=== PATIENT | male | born 1970 | race Caucasian/White ===

== ENCOUNTER 2018-12-28 18:36 | Emergency (ER) | payer MEDICARE, OTHER ==
[2018-12-28 18:50] VITALS: TEMP 98.3
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
--- NOTE | 2018-12-28 20:24 | XR ---
EXAMINATION TYPE: XR chest 2V DATE OF EXAM: 12/28/2018 COMPARISON: NONE HISTORY: Cough TECHNIQUE: Frontal and lateral views of the chest are obtained. FINDINGS: Heart and mediastinum are normal. Lungs are clear. Diaphragm is normal. Bony thorax appear s intact. IMPRESSION: Normal chest
[2018-12-28 22:12] VITALS: BP 148/97; PULSE 64; RESP 18
== END 2018-12-28 21:10 | disposition home or self-care (01) ==
LOC: EC 18:36 → EEVIPCON 18:36 → EC 21:10
DX: T17.210A Gastric contents in pharynx causing asphyxiation, initial encounter (principal); F84.0 Autistic disorder; R41.82 Altered mental status, unspecified; F41.0 Panic disorder [episodic paroxysmal anxiety]; Z79.899 Other long term (current) drug therapy; Y93.89 Activity, other specified
CPT/HCPCS: 71046; 99283

== ENCOUNTER 2019-07-18 17:54 | Observation (INO) | payer MEDICARE, OTHER ==
[2019-07-18] MEDS ORDERED: SODIUM CHLORIDE 0.9% 1,000 ML IV STA (18:11)
[2019-07-18 18:31] LABS: ALT 21 U/L (21-72); AST 22 U/L (17-59); African American GFR (CKD) >90 (>60 ml/min/1.73 sqM); Albumin 2.8 g/dL (3.5-5.0); Alkaline Phosphatase 48 U/L (38-126); Anion Gap 5 mmol/L; Basophils % (A) 0 %; Blood Urea Nitrogen 24 mg/dL (9-20); Calcium 7.2 mg/dL (8.4-10.2); Carbon Dioxide 24 mmol/L (22-30); Chloride 111 mmol/L (98-107); Eosinophils # (A) 0.1 k/uL (0-0.7); Eosinophils % (A) 2 %; Glucose 101 mg/dL (74-99); HCT 34.6 % (39.0-53.0); HGB 11.2 gm/dL (13.0-17.5); Lymphocytes # (A) 0.5 k/uL (1.0-4.8); Lymphocytes % (A) 7 %; MCH 29.4 pg (25.0-35.0); MCHC 32.5 g/dL (31.0-37.0); MCV 90.5 fL (80.0-100.0); Mean Platelet Volume 6.9; Monocytes # (A) 0.4 k/uL (0-1.0); Monocytes % (A) 5 %; Neutrophils # (A) 5.8 k/uL (1.3-7.7); Neutrophils % (A) 84 %; Non-African American GFR(CKD) >90 (>60 ml/min/1.73 sqM); Platelet Count 120 k/uL (150-450); Potassium 3.3 mmol/L (3.5-5.1); RBC 3.82 m/uL (4.30-5.90); RDW 12.6 % (11.5-15.5); Sodium 140 mmol/L (137-145); Total Bilirubin 0.5 mg/dL (0.2-1.3); Total Protein 5.2 g/dL (6.3-8.2); WBC 6.9 k/uL (3.8-10.6)
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
[2019-07-18 18:32] LABS: INR 1.1 (<1.2); Partial Thromboplastin Time 22.3 sec (22.0-30.0); Prothrombin Time 11.5 sec (9.0-12.0)
[2019-07-18] MEDS ORDERED: POTASSIUM CHLORIDE 20 MEQ in WATER FOR INJECTION 1 100ML.BAG IVPB STA (19:08)
[2019-07-18] MEDS ORDERED: NALOXONE 0.4 MG/ML 1 ML VIAL IV PRN (19:17)
--- NOTE | 2019-07-18 19:18 | XR ---
EXAMINATION TYPE: XR chest 2V DATE OF EXAM: 07/18/2019 COMPARISON: 12/28/2018 HISTORY: Hypotension TECHNIQUE: Frontal and lateral views of the chest are obtained. FINDINGS: Heart and mediastinum are normal. Lungs are clear. Diaphragm is normal. Bony thorax appear s normal. There are chest leads. IMPRESSION: Normal chest. No change.
[2019-07-18] MEDS: SODIUM CHLORIDE 0.9% 1,000 ML IV SCH (20:16)
[2019-07-18] MEDS ORDERED: MELATONIN 5 MG TABLET PO SCH (21:00)
[2019-07-18] MEDS ORDERED: HALOPERIDOL ORAL SOLN 10 MG/5 ML CUP PO SCH (21:00)
[2019-07-18] MEDS: QUEtiapine 200 MG TAB PO SCH (22:00)
[2019-07-18] MEDS: LORazepam 1 MG TAB PO SCH (22:00)
[2019-07-19 06:51] LABS: Basophils % (A) 0 %; Eosinophils # (A) 0.2 k/uL (0-0.7); Eosinophils % (A) 4 %; HCT 36.1 % (39.0-53.0); HGB 11.8 gm/dL (13.0-17.5); Lymphocytes # (A) 0.9 k/uL (1.0-4.8); Lymphocytes % (A) 14 %; MCH 28.7 pg (25.0-35.0); MCHC 32.8 g/dL (31.0-37.0); MCV 87.4 fL (80.0-100.0); Mean Platelet Volume 7.5; Monocytes # (A) 0.4 k/uL (0-1.0); Monocytes % (A) 6 %; Neutrophils # (A) 4.4 k/uL (1.3-7.7); Neutrophils % (A) 74 %; Platelet Count 127 k/uL (150-450); RBC 4.13 m/uL (4.30-5.90); RDW 12.8 % (11.5-15.5)
[2019-07-19] MEDS ORDERED: cloZAPine 100 MG TAB PO SCH ×2 (07:00→16:00)
[2019-07-19] MEDS ORDERED: HALOPERIDOL ORAL SOLN 10 MG/5 ML CUP PO SCH (07:00)
[2019-07-19] MEDS ORDERED: LORATADINE 10 MG TAB PO SCH (07:00)
[2019-07-19] MEDS ORDERED: ATENOLOL 50 MG TAB PO SCH (07:00)
[2019-07-19 07:25] LABS: African American GFR (CKD) >90 (>60 ml/min/1.73 sqM); Anion Gap 5 mmol/L; Blood Urea Nitrogen 19 mg/dL (9-20); Calcium 8.4 mg/dL (8.4-10.2); Carbon Dioxide 26 mmol/L (22-30); Chloride 111 mmol/L (98-107); Glucose 78 mg/dL (74-99); Non-African American GFR(CKD) >90 (>60 ml/min/1.73 sqM); Potassium 4.1 mmol/L (3.5-5.1); Sodium 142 mmol/L (137-145)
[2019-07-19] MEDS: LORazepam 1 MG TAB PO SCH (08:00)
[2019-07-19] MEDS: QUEtiapine 200 MG TAB PO SCH (08:03)
[2019-07-19] MEDS: SODIUM CHLORIDE 0.9% 1,000 ML IV SCH (10:32)
[2019-07-19 12:24] VITALS: BP 157/93; PULSE 63; RESP 17; TEMP 97.8
--- NOTE | 2019-07-19 15:12 | P.HPIM ---
History of Present Illness 49-year-old pleasant male is mostly nonverbal does have history of schizoaffective disorder autism spectrum disorder is admitted after a syncopal episode patient the had a brief episode of unresponsiveness patient blood pressure was found to be low patient is on atenolol blood heart rate is okay EKG did not show any acute ST-T wave changes patient received IV fluids patient is is clinically doing well now will be discharged today echocardiogram will be obtained as an outpatient syncope is probably secondary to hypotension which may be related to atenolol. Review of Systems underwent obtain due to his clinical condition Past Medical History Past Medical History: Seizure Disorder History of Any Multi-Drug Resistant Organisms: None Reported Past Surgical History: No Surgical Hx Reported Past Psychological History: Anxiety, Panic Disorder Smoking Status: Never smoker Past Alcohol Use History: None Reported Past Drug Use History: None Reported Medications and Allergies Home Medications Medication Instructions Recorded Confirmed Type Benztropine Mesylate [Cogentin] 1 mg PO BID@0700,199912/28/18 07/18/19 History Docusate [Colace] 100 mg PO DAILY@159912/28/18 07/18/19 History Eucerin Cream 1 applic TOPICAL HS@199912/28/18 07/18/19 History Haloperidol Oral Soln [Haldol Oral 2 mg PO DAILY@69912/28/18 07/18/19 History Soln] Haloperidol Oral Soln [Haldol Oral 3 mg PO HS 12/28/18 07/18/19 History Soln] LORazepam [Ativan] 1 mg PO BID@0700,199912/28/18 07/18/19 History Loratadine 10 mg PO DAILY@69912/28/18 07/18/19 History Melatonin 5 mg PO 12/28/18 07/18/19 History QUEtiapine FUMARATE [QUEtiapine 400 mg PO HS 12/28/18 07/18/19 History FUMARATE ER] cloZAPine [Clozaril] 100 mg PO HS@159912/28/18 07/18/19 History cloZAPine [Clozaril] 200 mg PO QAM@69912/28/18 07/18/19 History Allergies Allergy/AdvReac Type Severity Reaction Status Date / Time No Known Allergies Allergy Verified 07/18/19 19:22 Physical Exam Vitals: Vital Signs Temp Pulse Pulse Resp BP BP Pulse Ox 07/19/19 12:24 97.8 F 63 17 157/93 100 07/19/19 05:42 97.6 F 67 16 123/71 96 07/18/19 23:43 98.7 F 67 16 93/55 95 07/18/19 21:00 98.4 F 73 17 104/61 97 07/18/19 20:45 76 17 105/63 98 07/18/19 20:15 74 17 102/60 97 07/18/19 18:22 76 16 99/57 07/18/19 17:58 98.4 F 76 16 102/65 99 Intake and Output 07/19/19 07/19/19 07/19/19 06:59 14:59 22:59 Intake Total 340 Balance 340 Intake: Intake, IV Titration 100 Amount Potassium Chloride 20 meq 100 In Water For Injection 1 100ml.bag @ 50 mls/hr IVPB ONCE STA Rx#: [id number] Oral 240 Other: Voiding Method Toilet # Voids 4 # Bowel Movements 2 PHYSICAL EXAMINATION: GENERAL: The patient is alert unable to assess his orientation nonverbal, not in any acute distress. Well developed, well nourished. HEENT: Pupils are round and equally reacting to light. EOMI. No scleral icterus. No conjunctival pallor. Normocephalic, atraumatic. No pharyngeal erythema. No thyromegaly. CARDIOVASCULAR: S1 and S2 present. No murmurs, rubs, or gallops. PULMONARY: Chest is clear to auscultation, no wheezing or crackles. ABDOMEN: Soft, nontender, nondistended, normoactive bowel sounds. No palpable organomegaly. MUSCULOSKELETAL: No joint swelling or deformity. EXTREMITIES: No cyanosis, clubbing, or pedal edema. NEUROLOGICAL: Gross neurological examination did not reveal any focal deficits. SKIN: No rashes. Results CBC & Chem 7: 07/19/19 06:26 07/19/19 06:26 Labs: Abnormal Lab Results - Last 24 Hours (Table) 07/18/19 07/18/19 07/19/19 Range/Units 18:09 18:09 06:26 RBC 3.82 L 4.13 L (4.30-5.90) m/uL Hgb 11.2 L 11.8 L (13.0-17.5) gm/dL Hct 34.6 L 36.1 L (39.0-53.0) % Plt Count 120 L 127 L (150-450) k/uL Lymphocytes # 0.5 L 0.9 L (1.0-4.8) k/uL Potassium 3.3 L (3.5-5.1) mmol/L Chloride 111 H (98-107) mmol/L BUN 24 H (9-20) mg/dL Glucose 101 H (74-99) mg/dL Calcium 7.2 L (8.4-10.2) mg/dL Total Protein 5.2 L (6.3-8.2) g/dL Albumin 2.8 L (3.5-5.0) g/dL 07/19/19 Range/Units 06:26 RBC (4.30-5.90) m/uL Hgb (13.0-17.5) gm/dL Hct (39.0-53.0) % Plt Count (150-450) k/uL Lymphocytes # (1.0-4.8) k/uL Potassium (3.5-5.1) mmol/L Chloride 111 H (98-107) mmol/L BUN (9-20) mg/dL Glucose (74-99) mg/dL Calcium (8.4-10.2) mg/dL Total Protein (6.3-8.2) g/dL Albumin (3.5-5.0) g/dL Thrombosis Risk Factor Assmnt - Choose All That Apply Any of the Below Risk Factors Present?: Yes Each Factor Represents 1 point: Age 41-60 years Other Risk Factors: No Other congenital or acquired thrombophilia - If yes, enter type in comment: No Thrombosis Risk Factor Assessment Total Risk Factor Score: 1 Thrombosis Risk Factor Assessment Level: Low Risk Assessment and Plan Plan: -syncope secondary to hypotension may be related to atenolol patient heart rate and blood pressure are fairly good at this time off atenolol atenolol will be discontinued and patient will be discharged to follow with PCP as an outpatient -Hypokalemia potassium was supplemented -Autism and schizoaffective disorder patient is on multiple antipsychotic medications which will be resumed and continued -seizure disorder. Patient will be discharged today with the outpatient echocardiogram and 2-7 days
--- NOTE | 2019-07-19 15:12 | P.DS ---
Providers Date of admission: 07/18/19 19:18 Attending physician: Daniel Blanchard Primary care physician: Renan Wolfe [facility] Course: please refer to my HPI. Patient telemetry did not show any significant arrhythmias EKG normal sinus rhythm Patient Condition at Discharge: Stable Plan - Discharge Summary New Discharge Prescriptions: Discontinued Atenolol [Tenormin] 50 mg PO DAILY@0700 No Action QUEtiapine FUMARATE [QUEtiapine FUMARATE ER] 400 mg PO HS Melatonin 5 mg PO HS LORazepam [Ativan] 1 mg PO BID@07,1999 Benztropine Mesylate [Cogentin] 1 mg PO BID@07,1999 cloZAPine [Clozaril] 100 mg PO HS@1600 cloZAPine [Clozaril] 200 mg PO QAM@0700 Haloperidol Oral Soln [Haldol Oral Soln] 3 mg PO HS Haloperidol Oral Soln [Haldol Oral Soln] 2 mg PO DAILY@0700 Loratadine 10 mg PO DAILY@0700 Docusate [Colace] 100 mg PO DAILY@1600 Eucerin Cream 1 applic TOPICAL HS@1999 Discharge Medication List Benztropine Mesylate [Cogentin] 1 mg PO BID@0700,199912/28/18 [History] Docusate [Colace] 100 mg PO DAILY@1600 12/28/18 [History] Eucerin Cream 1 applic TOPICAL HS@199912/28/18 [History] Haloperidol Oral Soln [Haldol Oral Soln] 2 mg PO DAILY@0700 12/28/18 [History] Haloperidol Oral Soln [Haldol Oral Soln] 3 mg PO HS 12/28/18 [History] LORazepam [Ativan] 1 mg PO BID@07,199912/28/18 [History] Loratadine 10 mg PO DAILY@0700 12/28/18 [History] Melatonin 5 mg PO HS 12/28/18 [History] QUEtiapine FUMARATE [QUEtiapine FUMARATE ER] 400 mg PO HS 12/28/18 [History] cloZAPine [Clozaril] 100 mg PO HS@1600 12/28/18 [History] cloZAPine [Clozaril] 200 mg PO QAM@0700 12/28/18 [History] Follow up Appointment(s)/Referral(s): Renan Wolfe DO [Primary Care Provider] - 3 Days (Please call Dr. Wolfe's office Tuesday morning to schedule follow up appointment. The office is closed at time of discharge. ) Patient Instructions/Handouts: Syncope (DC) Discharge Disposition: HOME SELF-CARE
[2019-07-19] MEDS ORDERED: DOCUSATE 100 MG CAP PO SCH (16:00)
== END 2019-07-19 16:45 | disposition home or self-care (01) ==
LOC: EC 17:54 → 1SOBS 19:18 → 3NMEDONC 20:30
PROVIDERS: ADMIT Hospitalist; ATTEND Hospitalist
DX: I95.9 Hypotension, unspecified (principal); R55 Syncope and collapse; F84.0 Autistic disorder; F25.9 Schizoaffective disorder, unspecified; G40.909 Epilepsy, unspecified, not intractable, without status epilepticus; F41.9 Anxiety disorder, unspecified; F41.0 Panic disorder [episodic paroxysmal anxiety]; Z73.6 Limitation of activities due to disability; E11.9 Type 2 diabetes mellitus without complications; Z79.899 Other long term (current) drug therapy
CPT/HCPCS: 96361 ×3; 96365; 96366; 99285; 36415; 93005; 80053; 80048; 83605; 84484 ×2; 85025 ×2; 85610; 85730; 71046; G0378 ×3; J3480; S0136

== ENCOUNTER 2019-07-21 16:00 | Inpatient (IN) | payer MEDICARE, OTHER ==
[2019-07-21] MEDS ORDERED: SODIUM CHLORIDE 0.9% 1,000 ML IV STA (16:30)
[2019-07-21] MEDS ORDERED: ONDANSETRON 4 MG/2 ML VIAL IVP STA (16:30)
--- NOTE | 2019-07-21 16:33 | ED ---
Nausea/Vomiting/Diarrhea HPI <Marcel Rodriguez - Last Filed: 07/21/19 19:16> - General Source: patient Mode of arrival: ambulatory Limitations: no limitations <Lala Donaldson - Last Filed: 07/21/19 21:17> - General Chief complaint: Nausea/Vomiting/Diarrhea Stated complaint: ABDOMINAL PAIN, HARD STOMACH Time Seen by Provider: 07/21/19 16:22 - History of Present Illness Initial comments: 49-year-old male patient with past medical history significant for autism, schizophrenia, nonverbal presents to the emergency department with caregiver for evaluation of vomiting and lethargy. They state that patient's mental status has declined from his usual. States he has been sleeping all day. States he h as had 2 episodes of vomiting, his abdomen feels hard and distended. They state that he did have low-grade fever earlier on 99F. States that he has eaten very little today which is quite unusual for him. They state that he was recently admitted after a syncopal event, but was doing well after discharge. They deny any known diarrhea however patient does toilet himself independently. Caregiver states that patient was found lying in bed vomiting while on his back, states that his breathing has been more rapid since. They deny any coughing. (Lala Donaldson) - Related Data Home Medications Medication Instructions Recorded Confirmed Benztropine Mesylate [Cogentin] 1 mg PO BID@0700,199912/28/18 07/21/19 Docusate [Colace] 100 mg PO DAILY@1600 12/28/18 07/21/19 Eucerin Cream 1 applic TOPICAL HS@199912/28/18 07/21/19 Haloperidol Oral Soln [Haldol Oral 2 mg PO DAILY@0712/28/18 07/21/19 Soln] Haloperidol Oral Soln [Haldol Oral 3 mg PO HS@199912/28/18 07/21/19 Soln] LORazepam [Ativan] 1 mg PO BID@0700,199912/28/18 07/21/19 Loratadine 10 mg PO DAILY@0700 12/28/18 07/21/19 Melatonin 5 mg PO HS@199912/28/18 07/21/19 QUEtiapine FUMARATE [QUEtiapine 400 mg PO HS@199912/28/18 07/21/19 FUMARATE ER] cloZAPine [Clozaril] 100 mg PO HS@1600 12/28/18 07/21/19 cloZAPine [Clozaril] 200 mg PO QAM@0700 12/28/18 07/21/19 Atenolol [Tenormin] 50 mg PO DAILY@0700 07/21/19 07/21/19 LORazepam [Ativan] 1 mg PO BID PRN 07/21/19 07/21/19 Allergies Allergy/AdvReac Type Severity Reaction Status Date / Time No Known Allergies Allergy Verified 07/21/19 19:11 Review of Systems ROS Other: All systems not noted in ROS Statement are negative. <Marcel Rdoriguez - Last Filed: 07/21/19 19:16> ROS Other: All systems not noted in ROS Statement are negative. <Lala Donaldson - Last Filed: 07/21/19 21:17> ROS Statement: Those systems with pertinent positive or pertinent negative responses have been documented in the HPI. Past Medical History Past Medical History: Seizure Disorder History of Any Multi-Drug Resistant Organisms: None Reported Past Surgical History: No Surgical Hx Reported Past Psychological History: Anxiety, Panic Disorder, Schizophrenia Smoking Status: Never smoker Past Alcohol Use History: None Reported Past Drug Use History: None Reported <Lala Donaldson - Last Filed: 07/21/19 21:17> General Exam Limitations: no limitations General appearance: alert, in no apparent distress ENT exam: Present: normal exam, normal oropharynx, mucous membranes moist Respiratory exam: Present: normal lung sounds bilaterally. Absent: respiratory distress, wheezes, rales, rhonchi, stridor Cardiovascular Exam: Present: regular rate, normal rhythm, normal heart sounds. Absent: systolic murmur, diastolic murmur, rubs, gallop, clicks GI/Abdominal exam: Present: soft, distended, normal bowel sounds. Absent: tenderness, guarding, rebound, rigid Neurological exam: Present: alert Psychiatric exam: Present: normal affect, normal mood Skin exam: Present: warm, dry, intact, normal color. Absent: rash <Lala Donaldson - Last Filed: 07/21/19 21:17> Course <Marcel Rodriguez - Last Filed: 07/21/19 19:16> Vital Signs 07/21/19 07/21/19 07/21/19 16:16 17:30 19:44 Temperature 98.2 F 98.0 F Pulse Rate 90 94 Respiratory 18 16 18 Rate Blood Pressure 133/92 134/87 O2 Sat by Pulse 95 91 L Oximetry 07/21/19 20:04 Temperature Pulse Rate 91 Respiratory 18 Rate Blood Pressure 140/85 O2 Sat by Pulse 98 Oximetry - Reevaluation(s) Reevaluation #1: 07/21/19 19:16 And P supervision: I proceeded [id number] evaluation the patient the patient himself is nonconversant I did discuss the case with the patient's caregiver. Patient does present with nausea vomiting evidence of mechanical bowel obstruction with fecal stasis/impaction. Patient will be admitted for IV fluids nasogastric suction and surgical consultation. I did discuss the case with Dr. Adorno (Marcel Rodriguez) Medical Decision Making - Lab Data Result diagrams: 07/21/19 16:50 07/21/19 16:50 <Marcel Rodriguez - Last Filed: 07/21/19 19:16> - Lab Data Result diagrams: 07/21/19 16:50 07/21/19 16:50 - Radiology Data Radiology results: report reviewed, image reviewed <Lala Donaldson - Last Filed: 07/21/19 21:17> - Medical Decision Making 49-year-old male patient who is nonverbal with history of autism, [facility], presents to the emergency department today for eval uation of vomiting and abdominal distention. Physical examination did reveal distended abdomen with no tenderness. Labs reviewed and are relatively unremarkable. Did show low potassium, we will replace this IV. CT of the abdomen and pelvis did reveal evidence for small bowel obstruction possibly due to rectal fecal impaction. We will insert an NG tube, he'll be admitted for further evaluation by general surgery. NG tube was inserted, placement xray showed placement in the lung. Upon re-eval uation patient was 89% on room air. NG tube was removed. Concern for contamination with gastric contents so did start Levaquin. NG tube replaced and showed proper positioning. Oxygen saturation did improve. (Lala Donaldson) - Lab Data Lab Results 07/21/19 07/21/19 Range/Units 16:50 16:50 WBC 8.1 (3.8-10.6) k/uL RBC 4.40 (4.30-5.90) m/uL Hgb 12.9 L (13.0-17.5) gm/dL Hct 37.5 L (39.0-53.0) % MCV 85.2 (80.0-100.0) fL MCH 29.3 (25.0-35.0) pg MCHC 34.3 (31.0-37.0) g/dL RDW 12.6 (11.5-15.5) % Plt Count 159 (150-450) k/uL Neutrophils % 91 % Lymphocytes % 3 % Monocytes % 5 % Eosinophils % 0 % Basophils % 0 % Neutrophils # 7.4 (1.3-7.7) k/uL Lymphocytes # 0.3 L (1.0-4.8) k/uL Monocytes # 0.4 (0-1.0) k/uL Eosinophils # 0.0 (0-0.7) k/uL Basophils # 0.0 (0-0.2) k/uL Sodium 140 (137-145) mmol/L Potassium 3.2 L (3.5-5.1) mmol/L Chloride 103 (98-107) mmol/L Carbon Dioxide 25 (22-30) mmol/L Anion Gap 12 mmol/L BUN 25 H (9-20) mg/dL Creatinine 0.86 (0.66-1.25) mg/dL Est GFR (CKD-EPI)AfAm >90 (>60 ml/min/1.73 sqM) Est GFR (CKD-EPI)NonAf >90 (>60 ml/min/1.73 sqM) Glucose 185 H (74-99) mg/dL Calcium 9.3 (8.4-10.2) mg/dL Total Bilirubin 0.5 (0.2-1.3) mg/dL AST 24 (17-59) U/L ALT 23 (21-72) U/L Alkaline Phosphatase 72 (38-126) U/L Total Protein 6.7 (6.3-8.2) g/dL Albumin 4.0 (3.5-5.0) g/dL Amylase 70 (30-110) U/L Lipase 67 (23-300) U/L - Radiology Data Two-view x-ray of the chest is obtained. Report was reviewed in its entirety. Impression by Dr. Corona shows low lung volumes and cardiomegaly with patchy bibasilar acute atelectasis and/or infiltrate. KUB x-ray was obtained. Report was reviewed in its entirety. Impression by Dr. Corona shows bowel gas pattern suspicious for distal small bowel instruction. Distended stomach with air-fluid level. Advise NG tube placement. Continue CT. CT abdomen and pelvis with contrast obtained. Report was reviewed in its entirety. Impression by Dr. Torre shows markedly dilated small bowel with fluid and air. Dilated stomach. Rectal fecal impaction. Findings could relate to significant ileus or mechanical bowel obstruction. Site of the obstruction could be the rectal fecal impaction. No free air. Mild atelectasis at the lung base. (Lala Donaldson) Disposition <Marcel Rodriguez - Last Filed: 07/21/19 19:16> Decision to Admit Reason: Admit from EC Decision Date: 07/21/19 Decision Time: 18:49 <Lala Donaldson - Last Filed: 07/21/19 21:17> Clinical Impression: Small bowel obstruction Disposition: ADMITTED IP TO THIS HOSP Condition: Serious
[2019-07-21 17:04] LABS: Basophils % (A) 0 %; Eosinophils % (A) 0 %; HCT 37.5 % (39.0-53.0); HGB 12.9 gm/dL (13.0-17.5); Lymphocytes # (A) 0.3 k/uL (1.0-4.8); Lymphocytes % (A) 3 %; MCH 29.3 pg (25.0-35.0); MCHC 34.3 g/dL (31.0-37.0); MCV 85.2 fL (80.0-100.0); Mean Platelet Volume 7.6; Monocytes # (A) 0.4 k/uL (0-1.0); Monocytes % (A) 5 %; Neutrophils # (A) 7.4 k/uL (1.3-7.7); Neutrophils % (A) 91 %; Platelet Count 159 k/uL (150-450); RDW 12.6 % (11.5-15.5); WBC 8.1 k/uL (3.8-10.6)
[2019-07-21 17:13] LABS: ALT 23 U/L (21-72); AST 24 U/L (17-59); African American GFR (CKD) >90 (>60 ml/min/1.73 sqM); Alkaline Phosphatase 72 U/L (38-126); Amylase 70 U/L (30-110); Anion Gap 12 mmol/L; Blood Urea Nitrogen 25 mg/dL (9-20); Calcium 9.3 mg/dL (8.4-10.2); Carbon Dioxide 25 mmol/L (22-30); Chloride 103 mmol/L (98-107); Glucose 185 mg/dL (74-99); Non-African American GFR(CKD) >90 (>60 ml/min/1.73 sqM); Potassium 3.2 mmol/L (3.5-5.1); Sodium 140 mmol/L (137-145); Total Bilirubin 0.5 mg/dL (0.2-1.3); Total Protein 6.7 g/dL (6.3-8.2)
--- NOTE | 2019-07-21 17:19 | XR ---
EXAMINATION TYPE: XR chest 2V DATE OF EXAM: 07/21/2019 COMPARISON chest x-ray 3 days ago. HISTORY: Epigastric and chest pain. TECHNIQUE: Frontal and lateral views of the chest are obtained. FINDINGS: There is low lung volumes and chronic parenchymal change with patchy bibasilar opacities. No pleural effusion or pneumothorax. The cardiac silhouette size is mildly enlarged. The osseous s tructures are intact. Prominent stomach with air-fluid level extends to the right of midline. IMPRESSION: Lobe lung volumes and cardiomegaly with patchy bibasilar acute atelectasis and/or infilt rate.
--- NOTE | 2019-07-21 17:21 | XR ---
EXAMINATION TYPE: XR KUB DATE OF EXAM: 07/21/2019 5:14 PM CLINICAL HISTORY: Abdominal pain and distention. TECHNIQUE: Two Upright KUB images of the abdomen are obtained. COMPARISON: Same day chest x-ray.. FINDINGS: There is distended stomach with air-fluid level seen best on chest x-ray. There are gas dil ated and prominent small bowel loops with scattered air-fluid levels. Gas and fecal material is seen in slightly prominent rectum. Gas slightly prominent colonic loops without definitive abnormal dilata tion. Few scattered air-fluid levels. No pneumoperitoneum or suspicious calcification. Lung bases are clear. IMPRESSION: Bowel gas pattern suspicious for distal small bowel obstruction. Distended stomach with a ir-fluid level. Advise NG tube placement. Consider CT evaluation.
--- NOTE | 2019-07-21 18:13 | CT ---
EXAMINATION TYPE: CT abdomen pelvis w con DATE OF EXAM: 07/21/2019 COMPARISON: None HISTORY: Abdominal distention, nausea and vomiting. CT DLP: 979.3 mGycm Automated exposure control for dose reduction was used. TECHNIQUE: Helical acquisition of images was performed from the lung bases through the pelvis. CONTRAST: Performed without Oral Contrast and with IV Contrast, patient injected with 100 mL of Isovue 300. FINDINGS: There is some mild atelectasis at the lung bases. There is poor inspiration. Liver shows no focal def ect. Spleen is intact. Stomach is markedly dilated. There are multiple dilated air and fluid-filled s mall bowel loops that measure up to 4.6 cm. There is retained fecal material in the rectum. There is some rectal fecal impaction. Rectum measures 8 cm. The remainder of the large bowel is not significan tly dilated. There is gaseous distention of the transverse colon. Gallbladder appears normal. Bile ducts are not dilated. There is no adrenal mass. Kidneys show satisf actory contrast opacification. There is no hydronephrosis. I see no sign of free air. There is no asc ites. There is narrowing at L5-S1 disc space. There is spurring of the endplates. There is no compression f racture. Bony pelvis is intact. IMPRESSION: MARKEDLY DILATED SMALL BOWEL WITH FLUID AND AIR. DILATED STOMACH. RECTAL FECAL IMPACTION. FINDINGS CO ULD RELATE TO SIGNIFICANT ILEUS OR MECHANICAL BOWEL OBSTRUCTION. SITE OF THE OBSTRUCTION COULD BE THE RECTAL FECAL IMPACTION. NO FREE AIR. MILD ATELECTASIS AT THE LUNG BASES.
[2019-07-21] MEDS ORDERED: ONDANSETRON 4 MG/2 ML VIAL IVP PRN (18:47)
[2019-07-21] MEDS ORDERED: NALOXONE 0.4 MG/ML 1 ML VIAL IV PRN (18:47)
[2019-07-21] MEDS ORDERED: LORazepam 2 MG/ML INJ IV STA (18:58)
[2019-07-21] MEDS ORDERED: METOCLOPRAMIDE 5 MG/ML 2 ML VIAL IVP STA (18:58)
[2019-07-21] MEDS ORDERED: diphenhydrAMINE 50 MG/ML 1 ML VIAL IVP STA (18:58)
[2019-07-21] MEDS: SODIUM CHLORIDE 0.9% 1,000 ML IV SCH (19:04)
[2019-07-21] MEDS ORDERED: LEVOFLOXACIN 750MG-D5W PMX 750 MG in DEXTROSE/WATER 1 150ML.BAG IVPB STA (19:39)
--- NOTE | 2019-07-21 19:48 | XR ---
EXAMINATION TYPE: XR abdomen 1V DATE OF EXAM: 07/21/2019 COMPARISON: Today HISTORY: Check tube placement TECHNIQUE: Single view FINDINGS: Nasogastric tube has a tip in the left lower lobe bronchus. This is in lateral basal segmen t branch. There is dilated multiple loops of large and small bowel and dilated stomach. There is no s ign of free air. IMPRESSION: There is malposition of the NG tube. Emergency room is aware and making readjustment. Dilated bowel consistent with mechanical bowel obstruction.
--- NOTE | 2019-07-21 19:55 | XR ---
EXAMINATION TYPE: XR abdomen 1V DATE OF EXAM: 07/21/2019 COMPARISON: Today HISTORY: NG tube placement TECHNIQUE: Single view FINDINGS: The nasogastric tube is in the stomach and the tip is at the gastric fundus. There is some atelectasis at the lung bases. There are multiple dilated loops of bowel. IMPRESSION: NG tube is in good position.
[2019-07-21] MEDS ORDERED: LORazepam 1 MG TAB PO PRN (22:00)
[2019-07-21] MEDS: POTASSIUM CHLORIDE 10 MEQ in WATER FOR INJECTION 1 100ML.BAG IVPB SCH (23:05)
[2019-07-21] MEDS: HALOPERIDOL ORAL SOLN 10 MG/5 ML CUP PO SCH (23:06)
[2019-07-21] MEDS: MELATONIN 5 MG TABLET PO SCH (23:07)
[2019-07-21] MEDS: QUEtiapine 400 MG TAB PO SCH (23:07)
[2019-07-22] MEDS: POTASSIUM CHLORIDE 10 MEQ in WATER FOR INJECTION 1 100ML.BAG IVPB SCH (00:36)
[2019-07-22 00:49] LABS: Appearance,Urine Clear (Clear); Bilirubin,Urine Negative (Negative); Blood,Urine Trace (Negative); Color,Urine Yellow; Glucose,Urine (UA) Trace (Negative); Ketones,Urine Negative (Negative); Leukocyte Esterase,Urine Negative (Negative); Mucus,Urine Rare /hpf; Nitrite,Urine Negative (Negative); PH, Urine 6.5 (5.0-8.0); Protein,Urine 1+ (Negative); RBC,Urine 3 /hpf (0-5); Squamous Epithelial Cell,Urine <1 /hpf (0-4); Urobilinogen,Urine <2.0 mg/dL (<2.0); WBC,Urine 1 /hpf (0-5)
[2019-07-22 00:56] LABS: Specific Gravity,Urine >1.050 (1.001-1.035)
[2019-07-22] MEDS: LORazepam 1 MG TAB PO SCH ×2 (07:23→21:10)
[2019-07-22] MEDS: ATENOLOL 50 MG TAB PO SCH (07:23)
[2019-07-22] MEDS: LORATADINE 10 MG TAB PO SCH (07:23)
[2019-07-22] MEDS: HALOPERIDOL ORAL SOLN 10 MG/5 ML CUP PO SCH ×2 (07:23→21:09)
[2019-07-22] MEDS: cloZAPine 100 MG TAB PO SCH ×2 (07:23→15:59)
[2019-07-22] MEDS: BENZTROPINE MESYLATE 1 MG TAB PO SCH ×2 (07:23→21:10)
[2019-07-22] MEDS: SODIUM CHLORIDE 0.9% 1,000 ML IV SCH ×2 (07:24→21:21)
[2019-07-22 07:56] LABS: Basophils % (A) 0 %; Eosinophils % (A) 0 %; HCT 34.9 % (39.0-53.0); HGB 11.8 gm/dL (13.0-17.5); Lymphocytes # (A) 0.5 k/uL (1.0-4.8); Lymphocytes % (A) 8 %; MCH 29.1 pg (25.0-35.0); MCHC 33.9 g/dL (31.0-37.0); MCV 85.9 fL (80.0-100.0); Mean Platelet Volume 7.6; Monocytes # (A) 0.4 k/uL (0-1.0); Monocytes % (A) 6 %; Neutrophils # (A) 5.1 k/uL (1.3-7.7); Neutrophils % (A) 83 %; Platelet Count 145 k/uL (150-450); RBC 4.06 m/uL (4.30-5.90); RDW 12.7 % (11.5-15.5); WBC 6.2 k/uL (3.8-10.6)
[2019-07-22 08:00] LABS: African American GFR (CKD) >90 (>60 ml/min/1.73 sqM); Anion Gap 7 mmol/L; Blood Urea Nitrogen 25 mg/dL (9-20); Carbon Dioxide 29 mmol/L (22-30); Chloride 106 mmol/L (98-107); Glucose 115 mg/dL (74-99); Non-African American GFR(CKD) >90 (>60 ml/min/1.73 sqM); Potassium 3.5 mmol/L (3.5-5.1); Sodium 142 mmol/L (137-145)
--- NOTE | 2019-07-22 10:29 | P.GSCN ---
History of Present Illness Consult date: 07/22/19 Reason for Consult: Ileus History of present illness: 49-year-old male lives in a [facility]. Patient is a history of autism schizophrenia and is nonverbal. Patient came to the hospital because of some lethargy and episodes of vomiting. His abdomen was more distended. He had a low-grade fever of 99. Underwent workup in the ER which showed a normal white blood cell count. CAT scan revealed a distended stomach, small bowel, and colon with evidence of fecal impaction. Nasogastric tube was placed resulting in large volume output. Patient did remove the nasogastric tube himself overnight. It is still out at this time. No vomiting. Review of Systems ROS unobtainable: due to mental status Past Medical History Past Medical History: Seizure Disorder Additional Past Medical History / Comment(s): diabetic diet- but caregiver ates he is not a diabetic and [facility] does not check CBGs. History of Any Multi-Drug Resistant Organisms: None Reported Past Surgical History: No Surgical Hx Reported Past Psychological History: Anxiety, Panic Disorder, Schizophrenia Smoking Status: Never smoker Past Alcohol Use History: None Reported Past Drug Use History: None Reported - Past Family History Father Family Medical History: Unable to Obtain Mother Family Medical History: Unable to Obtain Medications and Allergies Home Medications Medication Instructions Recorded Confirmed Type Benztropine Mesylate [Cogentin] 1 mg PO BID@0700,199912/28/18 07/21/19 History Docusate [Colace] 100 mg PO DAILY@1600 12/28/18 07/21/19 History Eucerin Cream 1 applic TOPICAL HS@199912/28/18 07/21/19 History Haloperidol Oral Soln [Haldol Oral 2 mg PO DAILY@0700 12/28/18 07/21/19 History Soln] Haloperidol Oral Soln [Haldol Oral 3 mg PO HS@199912/28/18 07/21/19 History Soln] LORazepam [Ativan] 1 mg PO BID@0700,199912/28/18 07/21/19 History Loratadine 10 mg PO DAILY@0700 12/28/18 07/21/19 History Melatonin 5 mg PO HS@199912/28/18 07/21/19 History QUEtiapine FUMARATE [QUEtiapine 400 mg PO HS@199912/28/18 07/21/19 History FUMARATE ER] cloZAPine [Clozaril] 100 mg PO HS@1600 12/28/18 07/21/19 History cloZAPine [Clozaril] 200 mg PO QAM@0700 12/28/18 07/21/19 History Atenolol [Tenormin] 50 mg PO DAILY@0700 07/21/19 07/21/19 History LORazepam [Ativan] 1 mg PO BID PRN 07/21/19 07/21/19 History Allergies Allergy/AdvReac Type Severity Reaction Status Date / Time No Known Allergies Allergy Verified 07/21/19 19:11 Surgical - Exam Vital Signs Temp Pulse Resp BP Pulse Ox 98.2 F 90 18 133/92 95 07/21/19 16:16 07/21/19 16:16 07/21/19 16:16 07/21/19 16:16 07/21/19 16:16 Physical exam: General: Well-developed, well-nourished HEENT: Normocephalic, sclerae nonicteric Abdomen: Minimally distended, nontender Extremities: No edema Neuro: Alert Rectal: Stool present within the rectal vault, predominantly soft in consistency, no mass Results - Labs 07/22/19 07:18 07/22/19 07:18 Abnormal Lab Results - Last 24 Hours (Table) 07/21/19 07/21/19 07/22/19 Range/Units 16:50 16:50 00:01 RBC (4.30-5.90) m/uL Hgb 12.9 L (13.0-17.5) gm/dL Hct 37.5 L (39.0-53.0) % Plt Count (150-450) k/uL Lymphocytes # 0.3 L (1.0-4.8) k/uL Potassium 3.2 L (3.5-5.1) mmol/L BUN 25 H (9-20) mg/dL Glucose 185 H (74-99) mg/dL Ur Specific [place] >1.050 H (1.001-1.035) Urine Protein 1+ H (Negative) Urine Glucose (UA) Trace H (Negative) Urine Blood Trace H (Negative) Urine Mucus Rare H (None) /hpf 07/22/19 07/22/19 Range/Units 07:18 07:18 RBC 4.06 L (4.30-5.90) m/uL Hgb 11.8 L (13.0-17.5) gm/dL Hct 34.9 L (39.0-53.0) % Plt Count 145 L (150-450) k/uL Lymphocytes # 0.5 L (1.0-4.8) k/uL Potassium (3.5-5.1) mmol/L BUN 25 H (9-20) mg/dL Glucose 115 H (74-99) mg/dL Ur Specific [place] (1.001-1.035) Urine Protein (Negative) Urine Glucose (UA) (Negative) Urine Blood (Negative) Urine Mucus (None) /hpf Diabetes panel 07/21/19 07/22/19 Range/Units 16:50 07:18 Sodium 140 142 (137-145) mmol/L Potassium 3.2 L 3.5 (3.5-5.1) mmol/L Chloride 103 106 (98-107) mmol/L Carbon Dioxide 25 29 (22-30) mmol/L BUN 25 H 25 H (9-20) mg/dL Creatinine 0.86 0.86 (0.66-1.25) mg/dL Glucose 185 H 115 H (74-99) mg/dL Calcium 9.3 9.0 (8.4-10.2) mg/dL AST 24 (17-59) U/L ALT 23 (21-72) U/L Alkaline Phosphatase 72 (38-126) U/L Total Protein 6.7 (6.3-8.2) g/dL Albumin 4.0 (3.5-5.0) g/dL Calcium panel 07/21/19 07/22/19 Range/Units 16:50 07:18 Calcium 9.3 9.0 (8.4-10.2) mg/dL Albumin 4.0 (3.5-5.0) g/dL Pituitary panel 07/21/19 07/22/19 Range/Units 16:50 07:18 Sodium 140 142 (137-145) mmol/L Potassium 3.2 L 3.5 (3.5-5.1) mmol/L Chloride 103 106 (98-107) mmol/L Carbon Dioxide 25 29 (22-30) mmol/L BUN 25 H 25 H (9-20) mg/dL Creatinine 0.86 0.86 (0.66-1.25) mg/dL Glucose 185 H 115 H (74-99) mg/dL Calcium 9.3 9.0 (8.4-10.2) mg/dL Adrenal panel 07/21/19 07/22/19 Range/Units 16:50 07:18 Sodium 140 142 (137-145) mmol/L Potassium 3.2 L 3.5 (3.5-5.1) mmol/L Chloride 103 106 (98-107) mmol/L Carbon Dioxide 25 29 (22-30) mmol/L BUN 25 H 25 H (9-20) mg/dL Creatinine 0.86 0.86 (0.66-1.25) mg/dL Glucose 185 H 115 H (74-99) mg/dL Calcium 9.3 9.0 (8.4-10.2) mg/dL Total Bilirubin 0.5 (0.2-1.3) mg/dL AST 24 (17-59) U/L ALT 23 (21-72) U/L Alkaline Phosphatase 72 (38-126) U/L Total Protein 6.7 (6.3-8.2) g/dL Albumin 4.0 (3.5-5.0) g/dL Assessment and Plan (1) Ileus Narrative/Plan: 49-year-old male with ileus and fecal impaction. Begin soapsuds enemas today. Hold nasogastric tube replacement unless vomiting recurs. We'll follow closely with you. Current Visit: Yes Status: Acute Code(s): K56.7 - ILEUS, UNSPECIFIED SNOMED Code(s): 618838455
[2019-07-22] MEDS ORDERED: ACETAMINOPHEN TAB 500 MG TAB PO PRN (15:00)
--- NOTE | 2019-07-22 15:54 | HP ---
HISTORY AND PHYSICAL CHIEF COMPLAINT: Abdominal pain as well as distention. HISTORY OF PRESENT ILLNESS: This 49-year-old gentleman with a past medical history of multiple medical problems including seizure disorder, history of anxiety, panic disorder, being followed by Dr. Renan Wolfe in the outpatient setting is basically nonverbal. The caregiver thought that the patient had vomiting and lethargic and the patient also had abdominal distention. The patient had features of small-bowel obstruction secondary to fecal status. The patient admitted for further evaluation and treatment. After bowel regimen, the patient is having bowel movements at this time. The patient also running some fever. Empiric antibiotics also given. There is no history of fever, rigors. There is no history of significant trauma. A detailed history cannot be taken. The patient is unable to give a detailed history. Most of the history mostly taken from my discussion with staff and review of the chart. PAST MEDICAL HISTORY: Past medical history of seizure disorder, history of anxiety, panic disorder, schizophrenia, nonverbal. MEDICATIONS: Home medication include: 1. Melatonin 5 mg q.h.s. 2. Eucerin 1 application q.h.s. 3. Colace 100 mg p.o. daily. 4. Tenormin 50 mg p.o. daily. 5. Clozaril 200 mg q.a.m. and 100 mg q.h.s. 6. Seroquel 400 mg q.h.s. 7. Loratadine 10 mg daily. 8. Haldol 2 mg p.o. daily and 3 mg q.h.s. 9. Cogentin 1 mg p.o. b.i.d. 10.Ativan 1 mg p.o. b.i.d. p.r.n. 11.Ativan 1 mg p.o. b.i.d. ALLERGIES: None. Family history, social history and review of systems could not be taken the patient. The patient is nonverbal. PHYSICAL EXAM: Pulse is 86. Blood pressure 117/70, respiration 18, temperature 100.1, pulse ox 94% on room air. HEENT: Conjunctivae normal. NECK: No JVD. CARDIOVASCULAR SYSTEM: S1, S2 muffled. RESPIRATORY: Breath sounds diminished in the bases. A few scattered rhonchi. No crackles. ABDOMEN: Soft, mild diffuse distention present. LEGS: No edema. No swelling. NERVOUS SYSTEM: The patient moves all 4 limbs. A full exam could not be carried out. SKIN: No ulcers, rashes or bleeding. JOINTS: No active deforming arthropathy. LAB STUDIES: WBC 6.9, hemoglobin 11.8 and glucose 115. Otherwise, the other x-ray, chest x-ray personally reviewed by me showed low lung volumes and patchy bibasilar infiltrate or atelectasis. Otherwise abdomen and pelvis CT scan showed personally reviewed by me showed markedly dilated small bowel with fluid in the area with dilated stomach. Fecal impaction mechanical bowel obstruction. ASSESSMENT: 1. Abdominal distention and pain with small bowel obstruction secondary to chronic fecal impaction. 2. Fever, rule out bilateral pneumonia possibly gram-negative, possibly aspiration. 3. History of seizure disorder. 4. Anxiety. 5. Panic attacks. 6. Schizophrenia. 7. FULL CODE. 8. Anemia, normocytic anemia of chronic disease. 9. Hypokalemia. RECOMMENDATIONS AND DISCUSSION: In this 49-year-old gentleman who presented with multiple complex medical issues, we will monitor the patient closely. Continue the current medications, management and continue the bowel regimen. Otherwise, continue with cautious IV fluids. Otherwise, I would also recommend broad-spectrum IV antibiotics. I would recommend IV Zosyn and follow the cultures. DVT prophylaxis. Resume the home medications. Closely follow with Dr. Gilliland the surgeon. Guarded prognosis. Further recommendations to follow. A copy of dictation being forwarded to Dr. Wolfe who is the primary physician. MMODL / IJN: [id number] /
[2019-07-22] MEDS: PANTOPRAZOLE 40 MG/10 ML VIAL IVP SCH (15:59)
[2019-07-22] MEDS: DOCUSATE 100 MG CAP PO SCH (15:59)
[2019-07-22] MEDS: PIPERACILLIN-TAZOBACTAM 3.375 GM in SODIUM CHLORIDE 0.9% 100 ML IVPB SCH ×2 (16:02→23:30)
[2019-07-22] MEDS ORDERED: LEVOFLOXACIN 750MG-D5W PMX 750 MG in DEXTROSE/WATER 1 150ML.BAG IVPB SCH (21:00)
[2019-07-22] MEDS: MELATONIN 5 MG TABLET PO SCH (21:09)
[2019-07-22] MEDS: HEPARIN SODIUM,PORCINE 5,000 UNIT/ML 1 ML VIAL SQ SCH (21:09)
[2019-07-22] MEDS: QUEtiapine 400 MG TAB PO SCH (21:09)
[2019-07-22] MEDS: MINERAL OIL-WHITE PETROLATUM 120 GM JAR TOPICAL SCH (21:11)
[2019-07-23 07:56] LABS: Basophils % (A) 1 %; Eosinophils # (A) 0.1 k/uL (0-0.7); Eosinophils % (A) 2 %; HCT 34.7 % (39.0-53.0); HGB 11.6 gm/dL (13.0-17.5); Lymphocytes # (A) 0.9 k/uL (1.0-4.8); Lymphocytes % (A) 16 %; MCH 28.9 pg (25.0-35.0); MCHC 33.4 g/dL (31.0-37.0); MCV 86.5 fL (80.0-100.0); Mean Platelet Volume 7.4; Monocytes # (A) 0.4 k/uL (0-1.0); Monocytes % (A) 7 %; Neutrophils # (A) 4.1 k/uL (1.3-7.7); Neutrophils % (A) 72 %; Platelet Count 136 k/uL (150-450); RBC 4.02 m/uL (4.30-5.90); RDW 12.7 % (11.5-15.5); WBC 5.7 k/uL (3.8-10.6)
[2019-07-23] MEDS: PANTOPRAZOLE 40 MG/10 ML VIAL IVP SCH (07:58)
[2019-07-23] MEDS: HEPARIN SODIUM,PORCINE 5,000 UNIT/ML 1 ML VIAL SQ SCH ×2 (07:58→22:39)
[2019-07-23] MEDS: cloZAPine 100 MG TAB PO SCH ×2 (07:58→17:23)
[2019-07-23] MEDS: PIPERACILLIN-TAZOBACTAM 3.375 GM in SODIUM CHLORIDE 0.9% 100 ML IVPB SCH ×3 (07:58→23:02)
[2019-07-23] MEDS: HALOPERIDOL ORAL SOLN 10 MG/5 ML CUP PO SCH ×2 (07:58→22:39)
[2019-07-23] MEDS: LORATADINE 10 MG TAB PO SCH (07:59)
[2019-07-23] MEDS: SODIUM CHLORIDE 0.9% 1,000 ML IV SCH ×2 (07:59→22:41)
[2019-07-23] MEDS: BENZTROPINE MESYLATE 1 MG TAB PO SCH ×2 (07:59→22:39)
[2019-07-23] MEDS: ATENOLOL 50 MG TAB PO SCH (07:59)
[2019-07-23] MEDS: LORazepam 1 MG TAB PO SCH ×2 (07:59→22:39)
[2019-07-23 08:18] LABS: African American GFR (CKD) >90 (>60 ml/min/1.73 sqM); Anion Gap 7 mmol/L; Blood Urea Nitrogen 19 mg/dL (9-20); Calcium 8.3 mg/dL (8.4-10.2); Carbon Dioxide 25 mmol/L (22-30); Chloride 108 mmol/L (98-107); Glucose 80 mg/dL (74-99); Non-African American GFR(CKD) >90 (>60 ml/min/1.73 sqM); Potassium 3.5 mmol/L (3.5-5.1); Sodium 140 mmol/L (137-145)
--- NOTE | 2019-07-23 08:41 | XR ---
EXAMINATION TYPE: XR abdomen 2V DATE OF EXAM: 07/23/2019 CLINICAL HISTORY: Ileus and pain. TECHNIQUE: Supine and upright views of the abdomen are obtained. COMPARISON: Abdominal x-ray and CT abdomen and pelvis July 21, 2018. FINDINGS: Interval removal of nasogastric tube. Stomach is less distended versus prior study. Gas dil ated and prominent small bowel loops with air-fluid levels in the upper to mid abdomen remain present . Gas is seen in nondistended colon in the periphery of the lower abdomen and pelvis. Degree and numb er of gas distended small bowel loops felt improved from prior studies. Lung bases show patchy bibasi lar atelectasis and/or infiltrate. Osseous structures are intact. No pneumoperitoneum. IMPRESSION: Overall nonspecific bowel gas pattern. Findings suspicious for distal small bowel obstru ction though there is felt to improvement in number and degree of gaseous distended proximal small christy wel loops and stomach since most recent study despite interval nasogastric tube removal
--- NOTE | 2019-07-23 12:26 | P.PN ---
<Jojo Mendez Iris - Last Filed: 07/23/19 12:24> Subjective Progress Note Date: 07/23/19 CHIEF COMPLAINT: Ileus HISTORY OF PRESENT ILLNESS: Patient examined this morning at the bedside. He is nonverbal at baseline. Nursing reports large bowel movement yesterday following enema. No further vomiting. He does not appear to be in any discomfort during examination. Abdominal x-ray this morning reveals overall nonspecific bowel gas pattern. Findings suspicious for distal small bowel obstruction though there is felt to be improvement in the number and a creatinine Shows distended proximal small bowel loops and stomach since most recent study. PHYSICAL EXAM: VITAL SIGNS: Reviewed. GENERAL: Well-developed in no acute distress. HEENT: No sclera icterus. Extraocular movements grossly intact. Moist buccal mucosa. Head is atraumatic, normocephalic. ABDOMEN: Soft. Minimal distention. Nontender. Positive bowel sounds. NEUROLOGIC: Awake and alert. Nonverbal. ASSESSMENT: 1. Ileus with fecal impaction PLAN: Hold any further enemas Continue NPO until re-evaluated by Dr. Gilliland his afternoon. Possible initiation of clear liquid diet at that time. No need for NG tube at this time. No surgical intervention recommended. Nurse practitioner note has been reviewed by physician. Signing provider agrees with the documented findings, assessment, and plan of care. Objective - Vital Signs Vital signs: Vital Signs Temp 99.4 F 07/23/19 05:15 Pulse 87 07/23/19 05:15 Resp 20 07/23/19 05:15 BP 122/70 07/23/19 05:15 Pulse Ox 95 07/23/19 05:15 Intake & Output 07/22/19 07/23/19 07/23/19 18:59 06:59 18:59 Other: Voiding Method Toilet Diaper Incontinent # Voids 1 2 # Bowel Movements 1 - Labs CBC & Chem 7: 07/23/19 07:39 07/23/19 07:39 Labs: Abnormal Lab Results - Last 24 Hours (Table) 07/23/19 07/23/19 Range/Units 07:39 07:39 RBC 4.02 L (4.30-5.90) m/uL Hgb 11.6 L (13.0-17.5) gm/dL Hct 34.7 L (39.0-53.0) % Plt Count 136 L (150-450) k/uL Lymphocytes # 0.9 L (1.0-4.8) k/uL Chloride 108 H (98-107) mmol/L Calcium 8.3 L (8.4-10.2) mg/dL <LamarcarmelNitesh - Last Filed: 07/23/19 21:10> Subjective As above. Patient with multiple large bowel movements. Abdomen remained soft. No vomiting. Will add magnesium citrate. Repeat abdominal x-rays tomorrow. Begin diet. Objective - Vital Signs Vital signs: Vital Signs Temp 98.0 F 07/23/19 14:12 Pulse 69 07/23/19 14:12 Resp 16 07/23/19 14:12 BP 131/81 07/23/19 14:12 Pulse Ox 96 07/23/19 14:12 Intake & Output 07/23/19 07/23/19 07/24/19 06:59 18:59 06:59 Other: Voiding Method Toilet Diaper Incontinent # Voids 2 3 - Labs CBC & Chem 7: 07/23/19 07:39 07/23/19 07:39 Labs: Abnormal Lab Results - Last 24 Hours (Table) 07/23/19 07/23/19 Range/Units 07:39 07:39 RBC 4.02 L (4.30-5.90) m/uL Hgb 11.6 L (13.0-17.5) gm/dL Hct 34.7 L (39.0-53.0) % Plt Count 136 L (150-450) k/uL Lymphocytes # 0.9 L (1.0-4.8) k/uL Chloride 108 H (98-107) mmol/L Calcium 8.3 L (8.4-10.2) mg/dL Microbiology - Last 24 Hours (Table) 07/22/19 15:33 Blood Culture - Preliminary Blood No Growth after 24 hours Assessment and Plan (1) Ileus Current Visit: Yes Status: Acute Code(s): K56.7 - ILEUS, UNSPECIFIED SNOMED Code(s): 379966763
[2019-07-23] MEDS: DOCUSATE 100 MG CAP PO SCH (17:23)
[2019-07-23] MEDS ORDERED: MAGNESIUM CITRATE 296 ML BOTTLE PO ONE (21:08)
[2019-07-23] MEDS: QUEtiapine 400 MG TAB PO SCH (22:39)
[2019-07-23] MEDS: MELATONIN 5 MG TABLET PO SCH (22:39)
[2019-07-23] MEDS: MINERAL OIL-WHITE PETROLATUM 120 GM JAR TOPICAL SCH (22:41)
[2019-07-24] MEDS: HEPARIN SODIUM,PORCINE 5,000 UNIT/ML 1 ML VIAL SQ SCH ×2 (07:41→21:26)
[2019-07-24] MEDS: PANTOPRAZOLE 40 MG/10 ML VIAL IVP SCH (07:41)
[2019-07-24] MEDS: HALOPERIDOL ORAL SOLN 10 MG/5 ML CUP PO SCH ×2 (07:42→21:24)
[2019-07-24] MEDS: cloZAPine 100 MG TAB PO SCH ×2 (07:43→15:19)
[2019-07-24] MEDS: ATENOLOL 50 MG TAB PO SCH (07:43)
[2019-07-24] MEDS: BENZTROPINE MESYLATE 1 MG TAB PO SCH ×2 (07:43→21:26)
[2019-07-24] MEDS: LORATADINE 10 MG TAB PO SCH (07:43)
[2019-07-24] MEDS: LORazepam 1 MG TAB PO SCH ×2 (07:43→21:26)
[2019-07-24] MEDS: PIPERACILLIN-TAZOBACTAM 3.375 GM in SODIUM CHLORIDE 0.9% 100 ML IVPB SCH ×3 (07:46→23:54)
--- NOTE | 2019-07-24 08:17 | PN ---
PROGRESS NOTE DATE OF SERVICE: 07/23/2019 This is a 49-year-old gentleman who was admitted with abdominal pain, distention with secondary bowel obstruction possibly secondary to fecal impaction, is being closely monitored at this time. Dr. Gilliland has recommended to hold off any further enemas and the ileus where the fecal impaction was suspected. Patient will be closely monitored. No chest pain. No palpitations. No fever. PHYSICAL EXAM: Pulse is 77, blood pressure 125/60, respiration 24, temperature 99.2, pulse ox 94% on room air. HEENT: Conjunctivae normal. NECK: No jugular venous distension. CARDIOVASCULAR SYSTEM: S1, S2, muffled. RESPIRATORY SYSTEM: Breath sounds diminished at the bases. A few scattered rhonchi, no crackles. ABDOMEN: Soft, nontender. No mass palpable. No guarding. No rigidity. Bowel sounds present. LEGS: No edema, no swelling. NERVOUS SYSTEM: No focal deficits. LABS: WBC is 5.3, hemoglobin is 11.6. Influenza is negative. ASSESSMENT: 1. Abdominal distention and pain with small bowel obstruction secondary to chronic fecal impaction. 2. Fever, possible bilateral pneumonia, possibly gram-negative, possibly aspiration. 3. History of seizure disorder. 4. Anxiety. 5. Number panic attacks. 6. Schizophrenia. 7. Anemia, normocytic anemia of chronic disease. 8. Hypokalemia. 9. FULL CODE. RECOMMENDATIONS AND DISCUSSION: I recommend to continue current medications, symptomatic treatment. Otherwise, the patient's white count is normal. I would recommend continue with empiric antibiotics and closely follow with Surgery. Resume the home medications. Guarded prognosis because of multiple complex medical issues. Further recommendations to follow. MMODL / IJN: [id number] /
--- NOTE | 2019-07-24 08:34 | XR ---
EXAMINATION TYPE: XR abdomen 2V DATE OF EXAM: 07/24/2019 CLINICAL DATA: 49-year-old male follow-up ileus, [facility] COMPARISON: 07/23/2019 FINDINGS: No evidence for free intraperitoneal air. Small right pleural effusion with patchy right basilar opacity redemonstrated. Scattered colonic air-fluid levels are redemonstrated but show improvement from prior exam. Scattered mild stool is now present with air and stool extending distally into the rectum. The previously dilated small bowel appears to have resolved. IMPRESSION: 1. Findings suggest improving ileus with increasing solid stool and decreasing colonic air-fluid leve ls. The previous dilated small bowel loop appears to have improved as well. 2. Continued small right pleural effusion with adjacent atelectasis and/or consolidation.
[2019-07-24 09:23] LABS: Basophils % (A) 1 %; Eosinophils # (A) 0.2 k/uL (0-0.7); Eosinophils % (A) 2 %; HCT 35.3 % (39.0-53.0); HGB 12.2 gm/dL (13.0-17.5); Lymphocytes # (A) 0.7 k/uL (1.0-4.8); Lymphocytes % (A) 11 %; MCH 29.3 pg (25.0-35.0); MCHC 34.5 g/dL (31.0-37.0); MCV 84.8 fL (80.0-100.0); Mean Platelet Volume 6.7; Monocytes # (A) 0.4 k/uL (0-1.0); Monocytes % (A) 6 %; Neutrophils # (A) 4.9 k/uL (1.3-7.7); Neutrophils % (A) 78 %; Platelet Count 160 k/uL (150-450); RBC 4.16 m/uL (4.30-5.90); RDW 12.6 % (11.5-15.5); WBC 6.3 k/uL (3.8-10.6)
[2019-07-24 09:33] LABS: African American GFR (CKD) >90 (>60 ml/min/1.73 sqM); Anion Gap 8 mmol/L; Blood Urea Nitrogen 11 mg/dL (9-20); Calcium 8.7 mg/dL (8.4-10.2); Carbon Dioxide 30 mmol/L (22-30); Chloride 103 mmol/L (98-107); Glucose 139 mg/dL (74-99); Non-African American GFR(CKD) >90 (>60 ml/min/1.73 sqM); Potassium 2.9 mmol/L (3.5-5.1); Sodium 141 mmol/L (137-145)
[2019-07-24] MEDS: SODIUM CHLORIDE 0.9% 1,000 ML IV SCH (11:14)
[2019-07-24] MEDS ORDERED: POTASSIUM CHLORIDE ER 20 MEQ TAB.ER PO SCH ×2 (12:00→20:00)
[2019-07-24] MEDS: POTASSIUM CHLORIDE ER 10 MEQ TAB.ER.PRT PO SCH ×4 (13:19→17:58)
--- NOTE | 2019-07-24 13:33 | P.PN ---
<Jojo Mendez Iris - Last Filed: 07/24/19 13:31> Subjective Progress Note Date: 07/24/19 CHIEF COMPLAINT: Ileus HISTORY OF PRESENT ILLNESS: Patient examined this morning at the bedside. He is nonverbal at baseline. He is tolerating clear liquid diet. Nursing reports large bowel movement overnight. Abdominal x-ray reveals findings suggestive of improving ileus with increasing solid stool and decreasing colonic air-fluid levels. Previous dilated small bowel loops appear to have improved as well. PHYSICAL EXAM: VITAL SIGNS: Reviewed. GENERAL: Well-developed in no acute distress. HEENT: No sclera icterus. Extraocular movements grossly intact. Moist buccal mucosa. Head is atraumatic, normocephalic. ABDOMEN: Soft. Nondistended Nontender. NEUROLOGIC: Awake and alert. Nonverbal. ASSESSMENT: 1. Ileus with fecal impaction PLAN: Advance diet as tolerated No surgical intervention recommended Nurse practitioner note has been reviewed by physician. Signing provider agrees with the documented findings, assessment, and plan of care. Objective - Vital Signs Vital signs: Vital Signs Temp 97.9 F 07/24/19 12:16 Pulse 69 07/24/19 12:16 Resp 20 07/24/19 12:16 BP 125/46 07/24/19 12:16 Pulse Ox 98 07/24/19 12:16 Intake & Output 07/23/19 07/24/19 07/24/19 18:59 06:59 18:59 Intake Total 1470 Balance 1470 Intake: Oral 1470 Other: Voiding Method Toilet # Voids 3 3 8 # Bowel Movements 1 0 - Labs CBC & Chem 7: 07/24/19 08:40 07/24/19 08:40 Labs: Abnormal Lab Results - Last 24 Hours (Table) 07/24/19 07/24/19 Range/Units 08:40 08:40 RBC 4.16 L (4.30-5.90) m/uL Hgb 12.2 L (13.0-17.5) gm/dL Hct 35.3 L (39.0-53.0) % Lymphocytes # 0.7 L (1.0-4.8) k/uL Potassium 2.9 L (3.5-5.1) mmol/L Glucose 139 H (74-99) mg/dL Microbiology - Last 24 Hours (Table) 07/22/19 15:33 Blood Culture - Preliminary Blood No Growth after 24 hours <LamarChristiano burtNitesh - Last Filed: 07/24/19 17:25> Subjective Patient seems to be gradually improving. Better bowel function. Tolerating liquid diet. Continue advancing diet. Continue stool softeners. We'll sign off tomorrow if doing well. Objective - Vital Signs Vital signs: Vital Signs Temp 97.9 F 07/24/19 12:16 Pulse 69 07/24/19 12:16 Resp 20 07/24/19 12:16 BP 125/46 07/24/19 12:16 Pulse Ox 98 07/24/19 12:16 Intake & Output 07/23/19 07/24/19 07/24/19 18:59 06:59 18:59 Intake Total 1890 Balance 1890 Intake: IV 420 Piperacillin-Tazobactam 3 100 .375 gm In Sodium Chloride 0.9% 100 ml @ 25 mls/hr IVPB Q8HR [facility] Rx# :[id number] Sodium Chloride 0.9% 1, 320 000 ml @ 80 mls/hr IV . [id number] [facility] Rx#:[id number] Oral 1470 Other: Voiding Method Toilet # Voids 3 3 8 # Bowel Movements 1 0 - Labs CBC & Chem 7: 07/24/19 08:40 07/24/19 08:40 Labs: Abnormal Lab Results - Last 24 Hours (Table) 07/24/19 07/24/19 Range/Units 08:40 08:40 RBC 4.16 L (4.30-5.90) m/uL Hgb 12.2 L (13.0-17.5) gm/dL Hct 35.3 L (39.0-53.0) % Lymphocytes # 0.7 L (1.0-4.8) k/uL Potassium 2.9 L (3.5-5.1) mmol/L Glucose 139 H (74-99) mg/dL Microbiology - Last 24 Hours (Table) 07/22/19 15:33 Blood Culture - Preliminary Blood No Growth after 24 hours Assessment and Plan (1) Ileus Current Visit: Yes Status: Acute Code(s): K56.7 - ILEUS, UNSPECIFIED SNOMED Code(s): 983310669
[2019-07-24] MEDS: DOCUSATE 100 MG CAP PO SCH (15:19)
[2019-07-24] MEDS ORDERED: POTASSIUM CHLORIDE 20 MEQ in WATER FOR INJECTION 1 100ML.BAG IVPB SCH (17:00)
--- NOTE | 2019-07-24 17:13 | XR ---
EXAMINATION TYPE: XR chest 1V portable DATE OF EXAM: 07/24/2019 COMPARISON: 07/21/2019 HISTORY: Pneumonia TECHNIQUE: Single frontal view of the chest is obtained. FINDINGS: There is some mild pleural reaction and atelectasis at the lung bases. There is no heart f ailure. There is coarsening of the lung markings at the lung bases. Heart size is normal. IMPRESSION: Pleural reaction and atelectasis at the lung bases slightly worse than last exam. No hea rt failure seen.
[2019-07-24] MEDS ORDERED: POTASSIUM CHLORIDE 20 MEQ in WATER FOR INJECTION 1 100ML.BAG IVPB ONE (18:00)
--- NOTE | 2019-07-24 18:29 | PN ---
PROGRESS NOTE DATE OF SERVICE: 07/24/2019. This 49-year-old gentleman who was admitted with possible bowel obstruction being closely monitored by surgery. The patient is nonverbal at this time. Ileus with fecal impaction was considered. Advance the diet is being recommended by surgery. The most recent x-ray abdomen shows improving ileus, back some mild right pleural effusion also noted. PHYSICAL EXAM: Patient alert, nonverbal. Pulse 69, blood pressure 124/40, respiration 20, temperature 97.8, pulse ox 98% on room air. HEENT: Conjunctivae normal. NECK: No jugular venous distention. CARDIOVASCULAR: S1, S2 muffled. RESPIRATORY: Breath sounds diminished in the bases. A few scattered rhonchi. No crackles. ABDOMEN is soft. Mild diffuse distention, improving. LEGS are no edema. No swelling. CENTRAL NERVOUS SYSTEM: No focal deficits. LABS: WBC 6.3, hemoglobin 12.2. Sodium 140. Potassium 2.9. REVIEW OF SYSTEMS: Could not be taken. CURRENT MEDICATIONS: Reviewed and include: 1. Tylenol. 2. Tenormin. 3. Cogentin. 4. Clozaril. 5. Colace. 6. Claritin. 7. Ativan. 8. Eucerin. 9. Protonix. 10.Other doses reviewed. ASSESSMENT: 1. Abdominal distention and pain with small bowel obstruction secondary to chronic fecal impaction possibly. 2. Severe hypokalemia. 3. Fever possible bilateral pneumonia, possibly gram-negative, possibly aspiration. 4. History of seizure disorder. 5. Anxiety. 6. Panic attacks. 7. Schizophrenia. 8. Anemia, normocytic anemia of chronic disease. 9. Hypokalemia. 10.FULL CODE. RECOMMENDATIONS AND DISCUSSION: Recommend to continue current medications, monitoring, management and symptomatic treatment. Otherwise, broad-spectrum IV antibiotics. Supplement potassium. We will check magnesium protocols. Repeat lytes. Guarded prognosis because of multiple complex medical issues. Further recommendations to follow. MMODL / IJN: [id number] /
[2019-07-24] MEDS: MELATONIN 5 MG TABLET PO SCH (21:25)
[2019-07-24] MEDS: QUEtiapine 400 MG TAB PO SCH (21:26)
[2019-07-24] MEDS: MINERAL OIL-WHITE PETROLATUM 120 GM JAR TOPICAL SCH (21:30)
--- NOTE | 2019-07-25 09:32 | P.PN ---
Subjective Progress Note Date: 07/25/19 Principal diagnosis: Ileus/constipation Patient appears comfortable. Sitting upright in bed watching TV. Tolerating full liquid diet. Still having bowel function. No vomiting. T-max 100. Objective - Vital Signs Vital signs: Vital Signs Temp 100.1 F H 07/25/19 04:50 Pulse 91 07/25/19 04:50 Resp 20 07/25/19 04:50 BP 114/77 07/25/19 04:50 Pulse Ox 92 L 07/25/19 04:50 Intake & Output 07/24/19 07/25/19 07/25/19 18:59 06:59 18:59 Intake Total 1890 300 Balance 1890 300 Intake: IV 420 Piperacillin-Tazobactam 3 100 .375 gm In Sodium Chloride 0.9% 100 ml @ 25 mls/hr IVPB Q8HR [facility] Rx# :[id number] Sodium Chloride 0.9% 1, 320 000 ml @ 80 mls/hr IV . [id number] [facility] Rx#:[id number] Oral 1470 300 Other: # Voids 5 1 # Bowel Movements 1 - Exam Abdomen: Soft, minimal distention, nontender - Labs CBC & Chem 7: 07/24/19 08:40 07/24/19 08:40 Labs: Abnormal Lab Results - Last 24 Hours (Table) 07/24/19 Range/Units 08:40 Potassium 2.9 L (3.5-5.1) mmol/L Glucose 139 H (74-99) mg/dL Microbiology - Last 24 Hours (Table) 07/22/19 15:33 Blood Culture - Preliminary Blood No Growth after 48 hours Assessment and Plan (1) Ileus Narrative/Plan: Continue stool softeners. Advance diet as tolerated at this point. No further workup unless patient's symptoms recur. We'll sign off. Please call if needed. Current Visit: Yes Status: Acute Code(s): K56.7 - ILEUS, UNSPECIFIED SNOMED Code(s): 588769590
[2019-07-25] MEDS: BENZTROPINE MESYLATE 1 MG TAB PO SCH ×2 (10:14→21:02)
[2019-07-25] MEDS: ATENOLOL 50 MG TAB PO SCH (10:14)
[2019-07-25] MEDS: cloZAPine 100 MG TAB PO SCH ×2 (10:15→16:47)
[2019-07-25] MEDS: PANTOPRAZOLE 40 MG/10 ML VIAL IVP SCH (10:16)
[2019-07-25] MEDS: PIPERACILLIN-TAZOBACTAM 3.375 GM in SODIUM CHLORIDE 0.9% 100 ML IVPB SCH ×3 (10:17→23:43)
[2019-07-25] MEDS: HEPARIN SODIUM,PORCINE 5,000 UNIT/ML 1 ML VIAL SQ SCH ×2 (10:17→21:03)
[2019-07-25] MEDS: LORazepam 1 MG TAB PO SCH ×2 (10:17→21:02)
[2019-07-25] MEDS: LORATADINE 10 MG TAB PO SCH (10:17)
[2019-07-25] MEDS: HALOPERIDOL ORAL SOLN 10 MG/5 ML CUP PO SCH ×2 (10:18→21:02)
[2019-07-25 11:36] LABS: Basophils % (A) 1 %; Eosinophils # (A) 0.2 k/uL (0-0.7); Eosinophils % (A) 2 %; HCT 36.2 % (39.0-53.0); HGB 12.3 gm/dL (13.0-17.5); Lymphocytes # (A) 0.8 k/uL (1.0-4.8); Lymphocytes % (A) 13 %; MCHC 33.9 g/dL (31.0-37.0); MCV 85.7 fL (80.0-100.0); Mean Platelet Volume 6.2; Monocytes # (A) 0.5 k/uL (0-1.0); Monocytes % (A) 7 %; Neutrophils # (A) 4.8 k/uL (1.3-7.7); Neutrophils % (A) 75 %; Platelet Count 176 k/uL (150-450); RBC 4.22 m/uL (4.30-5.90); RDW 12.7 % (11.5-15.5); WBC 6.4 k/uL (3.8-10.6)
[2019-07-25 13:10] LABS: African American GFR (CKD) >90 (>60 ml/min/1.73 sqM); Anion Gap 8 mmol/L; Blood Urea Nitrogen 3 mg/dL (9-20); Carbon Dioxide 32 mmol/L (22-30); Chloride 103 mmol/L (98-107); Glucose 98 mg/dL (74-99); Magnesium 2.2 mg/dL (1.6-2.3); Non-African American GFR(CKD) >90 (>60 ml/min/1.73 sqM); Potassium 3.5 mmol/L (3.5-5.1); Sodium 143 mmol/L (137-145)
[2019-07-25 14:48] VITALS: RESP 18
[2019-07-25] MEDS: DOCUSATE 100 MG CAP PO SCH (16:47)
[2019-07-25] MEDS: QUEtiapine 400 MG TAB PO SCH (21:02)
[2019-07-25] MEDS: MELATONIN 5 MG TABLET PO SCH (21:02)
[2019-07-25] MEDS: MINERAL OIL-WHITE PETROLATUM 120 GM JAR TOPICAL SCH (21:04)
--- NOTE | 2019-07-25 21:18 | PN ---
PROGRESS NOTE DATE OF SERVICE: 07/25/2019. This 49-year-old gentleman who was admitted with abdominal distention and small bowel obstruction secondary to chronic fecal impaction is being closely monitored. No chest pain. No palpitations. No fever. EXAM: Alert and oriented x3. Pulse is 72. Blood pressure 129/79, respiration 18, temperature 98 degrees. Pulse ox 100 percent on room air. HEENT: Conjunctivae normal. NECK: No JVD. CARDIOVASCULAR: S1, S2 muffled. RESPIRATORY: Breath sounds diminished in the bases. A few scattered rhonchi and crackles. ABDOMEN is soft, nontender. LEGS are no edema. No swelling. CENTRAL NERVOUS SYSTEM: No focal deficits. LABS: WBC 6.2, hemoglobin 12.3 other labs are noted. ASSESSMENT: 1. Abdominal distention and pain with small-bowel obstruction possibly secondary to chronic fecal impaction possibly. 2. Severe hypokalemia. 3. Fever, possible bilateral pneumonia, possibly gram-negative, possibly aspiration. 4. History of seizure disorder. 5. Anxiety. 6. Panic attacks. 7. History of schizophrenia. 8. Anemia, normocytic anemia of chronic disease. 9. Hypokalemia. 10.FULL CODE. RECOMMENDATIONS AND DISCUSSION: Recommend to continue current medications, monitoring, management and symptomatic treatment. Otherwise, at this time, I recommend continue with empiric antibiotics and advance diet. Increase ambulation. Possible discharge within the next 24 hours if okay with surgery. Further recommendations to follow. MMODL / IJN: [id number] /
[2019-07-26] MEDS ORDERED: PANTOPRAZOLE 40 MG TABLET PO SCH (07:30)
[2019-07-26] MEDS: LORazepam 1 MG TAB PO SCH (08:08)
[2019-07-26] MEDS: PIPERACILLIN-TAZOBACTAM 3.375 GM in SODIUM CHLORIDE 0.9% 100 ML IVPB SCH ×2 (08:09→16:40)
[2019-07-26] MEDS: HALOPERIDOL ORAL SOLN 10 MG/5 ML CUP PO SCH (08:09)
[2019-07-26] MEDS: cloZAPine 100 MG TAB PO SCH ×2 (08:09→16:43)
[2019-07-26] MEDS: BENZTROPINE MESYLATE 1 MG TAB PO SCH (08:09)
[2019-07-26] MEDS: ATENOLOL 50 MG TAB PO SCH (08:09)
[2019-07-26] MEDS: LORATADINE 10 MG TAB PO SCH (08:09)
[2019-07-26] MEDS: HEPARIN SODIUM,PORCINE 5,000 UNIT/ML 1 ML VIAL SQ SCH (08:10)
[2019-07-26] MEDS ORDERED: BISACODYL 10 MG SUPP RECTAL STA (11:35)
[2019-07-26 13:04] VITALS: BP 117/76; PULSE 73; TEMP 97.7
[2019-07-26] MEDS: DOCUSATE 100 MG CAP PO SCH (16:43)
--- NOTE | 2019-07-27 07:12 | DS ---
DISCHARGE SUMMARY DATE OF SERVICE: 07/26/2019. FINAL DIAGNOSES: 1. Abdominal pain, distention, pain with small-bowel obstruction possibly secondary to chronic fecal impaction possibly. 2. Severe hypokalemia improved. 3. Fever, possible bilateral pneumonia, possibly gram-negative pneumonia, possibly aspiration, improved. 4. History of seizure disorder. 5. Anxiety. 6. Panic attacks. 7. History of schizophrenia. 8. Anemia, normocytic anemia of chronic disease. 9. Hypokalemia, improved. 10.FULL CODE. DISCHARGE DISPOSITION: Patient being discharged in stable condition with guarded prognosis. Total time taken: 35 minutes. HISTORY OF PRESENT ILLNESS: This 49-year-old gentleman with a past medical history of multiple medical problems, admitted with abdominal distention and pain, features of small-bowel obstruction, treated symptomatically, improved significantly. Dr. Gilliland saw the patient from surgical point of view. On exam, vitals are stable. Cardiovascular: S1, S21. Abdomen soft. Nervous system: No focal deficits. Otherwise, influenza negative and hemoglobin 12.3. DISCHARGE ADVICE/MEDICATIONS: 1. Diet is cardiac diet. 2. Activity limited until follow up. 3. Follow up with Dr. Wolfe as mentioned. DISCHARGE MEDICATIONS: 1. Ativan 1 mg p.o. b.i.d. and 2 mg b.i.d. p.r.n. 2. Clozaril 100 mg p.o. q.h.s. and 200 mg q.a.m. 3. Cogentin 1 mg p.o. b.i.d. 4. Colace 100 mg p.o. daily. 5. Eucerin cream 1 application topically q.h.s. 6. Haldol 3 mg q.h.s. and 2 mg daily. 7. Loratadine 10 mg p.o. daily. 8. Melatonin 5 mg q.h.s. 9. Seroquel 400 mg q.h.s. 10.Tenormin 50 mg p.o. daily. 11.Augmentin 875 mg p.o. b.i.d. for 3 days. 12.Protonix 40 mg p.o. daily. 13.Protonix 40 mg daily. 14.Tylenol 500 mg q.6h p.r.n. 15.Follow up with Dr. Gilliland as recommended. Once again, the patient is being discharged in stable condition with guarded prognosis. MMJAYESH / [place]: [id number] /
== END 2019-07-26 17:14 | disposition home or self-care (01) | DRG 388 ==
LOC: EC 16:00 → 4MS4W 19:16
PROVIDERS: ADMIT Hospitalist; ATTEND Hospitalist
PROC: 0D9670Z Drainage of Stomach with Drainage Device, Via Natural or Artificial Opening (ICD-10-PCS; principal; 2019-07-21)
DX: K56.41 Fecal impaction (principal); J15.6 Pneumonia due to other Gram-negative bacteria; J69.0 Pneumonitis due to inhalation of food and vomit; F84.0 Autistic disorder; J90 Pleural effusion, not elsewhere classified; G40.909 Epilepsy, unspecified, not intractable, without status epilepticus; F41.0 Panic disorder [episodic paroxysmal anxiety]; F20.9 Schizophrenia, unspecified; D63.8 Anemia in other chronic diseases classified elsewhere; E87.6 Hypokalemia; Z79.899 Other long term (current) drug therapy
CPT/HCPCS: 36415; 43753; 71045; 71046; 74018; 74019; 74177; 80048; 80053; 81001; 82150; 83605; 83690; 83735; 84484; 85025; 85610; 85730; 87040; 87502; 93005; 96361; 96365; 96366; 96374; 96375; 99285

== ENCOUNTER 2022-01-16 12:45 | Inpatient (IN) | payer MEDICARE, OTHER ==
[2022-01-16] MEDS ORDERED: SODIUM CHLORIDE 0.9% 1,000 ML IV STA (12:59)
--- NOTE | 2022-01-16 13:17 | ED ---
General Adult HPI - General Chief complaint: Recheck/Abnormal Lab/Rx Stated complaint: hypotension Time Seen by Provider: 01/16/22 12:46 Source: EMS Mode of arrival: EMS Limitations: altered mental status - History of Present Illness Initial comments: Dictation was produced using [employer] dictation software. please excuse any grammatical, word or spelling errors. Chief Complaint: 51-year-old male presents to the emergency department for generalized weakness, altered mental status and hypotension History of Present Illness: 51-year-old male presents to emergency department after being found generally weak. He woke up this morning he was evaluated by retirement staff. He is accompanied today by retirement staff. Was found to be normal this morning. He had a normal breakfast. Patient able to ambulate and care for himself with minimal assistance. He is at baseline alert and oriented 1. At lunchtime they woke him up to go have lunch. Glass Cutting Machine Feeder at the bedside reports that he did have some right-sided facial droop. So appear to be more confused. At lunch patient became very lethargic and his face went into his food. They checked his blood pressure and was found to be 60s over 50s. EMS was called patient is brought to the emergency room. Staff member reports that patient is a twin brother that has similar medical issues that is prone to cerebrovascular accidents. Patient has been noticed to have some coughing recently. She unable to provide history of present illness. He is able to state his name however is unable to provide any other details. He is able to follow some basic commands. The ROS documented in this emergency department record has been reviewed and confirmed by me. Those systems with pertinent positive or negative responses have been documented in the HPI. All other systems are other negative and/or noncontributory. PHYSICAL EXAM: General Impression: Alert and oriented x3, not in acute distress HEENT: Normocephalic atraumatic, extra-ocular movements intact, pupils equal and reactive to light bilaterally, mucous membranes moist. Cardiovascular: Heart regular rate and rhythm Chest: Able to complete full sentences, no retractions, no tachypnea Abdomen: abdomen soft, non-tender, non-distended, no organomegaly Musculoskeletal: Pulses present and equal in all extremities, no peripheral edema Motor: no focal deficits noted Neurological: Right-sided facial droop, no other focal motor or sensory deficits noted, NIH score of 2 Skin: Intact with no visualized rashes Psych: Normal affect and mood ED course: 51-year-old male presents emergency Department with hypotension, a ltered mental status and perhaps some symptoms of stroke. Glass Cutting Machine Feeder at the bedside reported that his last known normal was this morning. Vital signs upon arrival shows blood pressure 92/57, rest of vital signs within acceptable limits. His symptoms are suspicious for cerebrovascular accident given that he has no onset right-sided facial droop. NIH is difficult to assess given that patient at baseline is alert and oriented 1 and has history of autism and mental delay. He is not a candidate for alteplase given unclear time of onset and low NIH score. At this point risk of thrombolytics outweigh the benefits. Nonetheless patient symptoms are viewed as acute and code stroke was activated. CT brain and CT angiogram of the head and neck shows no acute processes. Case is discussed with stroke neurologist, Dr. Owusu. He did not recommend alteplase or thrombectomy at this time given low NIH score. Chest x-ray is unremarkable. Laboratory evaluation obtained. He will was 10.5 which is slightly below placed platelet count is 91. Patient does not have a history of thrombocytopenia. Coag panel is negative. Metabolic panel is within acceptable limits. 4 panel by PCR is negative. Patient reevaluated at bedside at 3:30 PM found to be in stable medical condition. Patient given aspirin. He'll be admitted with consultation to neurology. Patient be admitted to [facility]. EKG interpretation: Ventricular rate 61, sinus rhythm,. 179, QS 99, QTc 438. No VA prolongation, no QTC prolongation, no ST or T-wave changes noted. . Overall, this EKG is unremarkable - Related Data Home Medications Medication Instructions Recorded Confirmed Benztropine Mesylate [Cogentin] 1 mg PO BID@0700,199912/28/18 07/21/19 Docusate [Colace] 100 mg PO DAILY@159912/28/18 07/21/19 Eucerin Cream 1 applic TOPICAL HS@199912/28/18 07/21/19 Loratadine 10 mg PO DAILY@0712/28/18 07/21/19 cloZAPine [Clozaril] 100 mg PO HS@159912/28/18 07/21/19 cloZAPine [Clozaril] 200 mg PO QAM@69912/28/18 07/21/19 Atenolol [Tenormin] 50 mg PO DAILY@0707/21/19 07/21/19 LORazepam [Ativan] 1 mg PO BID PRN 07/21/19 07/21/19 Melatonin 10 mg PO HS@199901/16/22 01/16/22 QUEtiapine [SEROquel] 400 mg PO HS@199901/16/22 01/16/22 polyethylene glycoL 3350 [Miralax] 17 gm PO DAILY@69901/16/22 01/16/22 Allergies Allergy/AdvReac Type Severity Reaction Status Date / Time No Known Allergies Allergy Verified 01/16/22 15:25 Review of Systems ROS Statement: Those systems with pertinent positive or pertinent negative responses have been documented in the HPI. ROS Other: All systems not noted in ROS Statement are negative. Past Medical History Past Medical History: Seizure Disorder Additional Past Medical History / Comment(s): diabetic diet- but caregiver states he is not a diabetic and retirement does not check CBGs. History of Any Multi-Drug Resistant Organisms: None Reported Past Surgical History: No Surgical Hx Reported Past Psychological History: Anxiety, Panic Disorder, Schizophrenia Smoking Status: Never smoker Past Alcohol Use History: None Reported Past Drug Use History: None Reported - Past Family History Father Family Medical History: Unable to Obtain Mother Family Medical History: Unable to Obtain General Exam Limitations: altered mental status Course Vital Signs 01/16/22 01/16/22 12:51 13:57 Pulse Rate 62 60 Respiratory 16 16 Rate Blood Pressure 92/57 96/61 O2 Sat by Pulse 95 Oximetry Medical Decision Making - Lab Data Result diagrams: 01/16/22 13:40 01/16/22 13:40 Lab Results 01/16/22 01/16/22 01/16/22 Range/Units 13:40 13:40 13:40 WBC 7.0 (3.8-10.6) k/uL RBC 3.54 L (4.30-5.90) m/uL Hgb 10.5 L (13.0-17.5) gm/dL Hct 31.9 L (39.0-53.0) % MCV 90.0 (80.0-100.0) fL MCH 29.7 (25.0-35.0) pg MCHC 33.0 (31.0-37.0) g/dL RDW 12.8 (11.5-15.5) % Plt Count 91 L (150-450) k/uL MPV 8.5 Neutrophils % 87 % Lymphocytes % 5 % Monocytes % 6 % Eosinophils % 1 % Basophils % 0 % Neutrophils # 6.1 (1.3-7.7) k/uL Lymphocytes # 0.3 L (1.0-4.8) k/uL Monocytes # 0.4 (0-1.0) k/uL Eosinophils # 0.1 (0-0.7) k/uL Basophils # 0.0 (0-0.2) k/uL Manual Slide Review Performed RBC Morphology Normal PT 11.8 (9.0-12.0) sec INR 1.1 (<1.2) APTT 26.5 (22.0-30.0) sec Sodium 138 (137-145) mmol/L Potassium 3.8 (3.5-5.1) mmol/L Chloride 105 (98-107) mmol/L Carbon Dioxide 27 (22-30) mmol/L Anion Gap 6 mmol/L BUN 22 H (9-20) mg/dL Creatinine 1.06 (0.66-1.25) mg/dL Est GFR (CKD-EPI)AfAm >90 (>60 ml/min/1.73 sqM) Est GFR (CKD-EPI)NonAf 80 (>60 ml/min/1.73 sqM) Glucose 109 H (74-99) mg/dL Plasma Lactic Acid Dimitry (0.7-2.0) mmol/L Calcium 7.6 L (8.4-10.2) mg/dL Magnesium 1.9 (1.6-2.3) mg/dL Total Bilirubin 0.2 (0.2-1.3) mg/dL AST 18 (17-59) U/L ALT 10 (4-49) U/L Alkaline Phosphatase 47 (38-126) U/L Troponin I (0.000-0.034) ng/mL Total Protein 5.2 L (6.3-8.2) g/dL Albumin 2.9 L (3.5-5.0) g/dL Influenza Type A (PCR) (Not Detectd) Influenza Type B (PCR) (Not Detectd) RSV (PCR) (Not Detectd) SARS-CoV-2 (PCR) (Not Detectd) 01/16/22 01/16/22 01/16/22 Range/Units 13:40 13:40 13:40 WBC (3.8-10.6) k/uL RBC (4.30-5.90) m/uL Hgb (13.0-17.5) gm/dL Hct (39.0-53.0) % MCV (80.0-100.0) fL MCH (25.0-35.0) pg MCHC (31.0-37.0) g/dL RDW (11.5-15.5) % Plt Count (150-450) k/uL MPV Neutrophils % % Lymphocytes % % Monocytes % % Eosinophils % % Basophils % % Neutrophils # (1.3-7.7) k/uL Lymphocytes # (1.0-4.8) k/uL Monocytes # (0-1.0) k/uL Eosinophils # (0-0.7) k/uL Basophils # (0-0.2) k/uL Manual Slide Review RBC Morphology PT (9.0-12.0) sec INR (<1.2) APTT (22.0-30.0) sec Sodium (137-145) mmol/L Potassium (3.5-5.1) mmol/L Chloride (98-107) mmol/L Carbon Dioxide (22-30) mmol/L Anion Gap mmol/L BUN (9-20) mg/dL Creatinine (0.66-1.25) mg/dL Est GFR (CKD-EPI)AfAm (>60 ml/min/1.73 sqM) Est GFR (CKD-EPI)NonAf (>60 ml/min/1.73 sqM) Glucose (74-99) mg/dL Plasma Lactic Acid Dimitry 1.5 (0.7-2.0) mmol/L Calcium (8.4-10.2) mg/dL Magnesium (1.6-2.3) mg/dL Total Bilirubin (0.2-1.3) mg/dL AST (17-59) U/L ALT (4-49) U/L Alkaline Phosphatase (38-126) U/L Troponin I <0.012 (0.000-0.034) ng/mL Total Protein (6.3-8.2) g/dL Albumin (3.5-5.0) g/dL Influenza Type A (PCR) Not Detected (Not Detectd) Influenza Type B (PCR) Not Detected (Not Detectd) RSV (PCR) Not Detected (Not Detectd) SARS-CoV-2 (PCR) Not Detected (Not Detectd) Disposition Clinical Impression: Facial droop Disposition: [facility] Condition: Fair Referrals: Renan Wolfe DO [Primary Care Provider] - 1-2 days Decision Time: 15:34
--- NOTE | 2022-01-16 13:33 | CT ---
EXAMINATION TYPE: CT brain wo con DATE OF EXAM: 01/16/2022 COMPARISON: None INDICATION: CODE STROKE DLP: 1147.6 mGycm, Automated exposure control for dose reduction was used. CONTRAST: None CT of the brain is performed utilizing 3 mm thick sections through the posterior fossa and 3 mm thick sections through the remaining calvarium. Study is performed within 24 hours of arrival to the hosp ital. No abnormal hyperdensity is present to suggest an acute intracranial hemorrhage. No mass lesion is evident. No acute infarcts are evident. Ventricles and sulci are appropriate for the patient age. Paranasal sinuses and mastoid air cells within the [id number] are clear. IMPRESSIONS: 1. No suspicious acute intracranial changes. Follow-up MRI can be performed as clinically indicated .
[2022-01-16 13:56] LABS: Basophils % (A) 0 %; Eosinophils # (A) 0.1 k/uL (0-0.7); Eosinophils % (A) 1 %; HCT 31.9 % (39.0-53.0); HGB 10.5 gm/dL (13.0-17.5); Lymphocytes # (A) 0.3 k/uL (1.0-4.8); Lymphocytes % (A) 5 %; MCH 29.7 pg (25.0-35.0); Mean Platelet Volume 8.5; Monocytes # (A) 0.4 k/uL (0-1.0); Monocytes % (A) 6 %; Neutrophils # (A) 6.1 k/uL (1.3-7.7); Neutrophils % (A) 87 %; RBC 3.54 m/uL (4.30-5.90); RDW 12.8 % (11.5-15.5)
[2022-01-16 14:08] LABS: INR 1.1 (<1.2); Partial Thromboplastin Time 26.5 sec (22.0-30.0); Prothrombin Time 11.8 sec (9.0-12.0)
--- NOTE | 2022-01-16 14:11 | XR ---
EXAMINATION TYPE: XR chest 1V portable DATE OF EXAM: 01/16/2022 COMPARISON: 07/24/2019 INDICATION: Altered mental status, congestion TECHNIQUE: Single frontal view of the chest is obtained. FINDINGS: The heart size is normal. The pulmonary vasculature is normal. The lungs are clear. IMPRESSION: 1. No acute pulmonary process.
[2022-01-16 14:14] LABS: ALT 10 U/L (4-49); AST 18 U/L (17-59); African American GFR (CKD) >90 (>60 ml/min/1.73 sqM); Albumin 2.9 g/dL (3.5-5.0); Alkaline Phosphatase 47 U/L (38-126); Anion Gap 6 mmol/L; Blood Urea Nitrogen 22 mg/dL (9-20); Calcium 7.6 mg/dL (8.4-10.2); Carbon Dioxide 27 mmol/L (22-30); Chloride 105 mmol/L (98-107); Glucose 109 mg/dL (74-99); Magnesium 1.9 mg/dL (1.6-2.3); Non-African American GFR(CKD) 80 (>60 ml/min/1.73 sqM); Potassium 3.8 mmol/L (3.5-5.1); Sodium 138 mmol/L (137-145); Total Bilirubin 0.2 mg/dL (0.2-1.3); Total Protein 5.2 g/dL (6.3-8.2)
--- NOTE | 2022-01-16 14:21 | CT ---
EXAMINATION TYPE: CT angio head neck DATE OF EXAM: 01/16/2022 COMPARISON: None HISTORY: altered mental status CT DLP: 399.9 mGycm Automated exposure control for dose reduction was used. CONTRAST: Performed with IV Contrast, patient injected with 65 mL of Isovue 370. Images obtained from the aortic arch to the vertex of the brain with IV contrast. There are Three-D p ostprocessed images. There is normal branching pattern of the great vessels on the aortic arch. There is arterial flow in both subclavian arteries. There is arterial flow in the common internal and external carotid arteries bilaterally. There is wide patency of the carotid artery bifurcations. There is arterial flow in bot h vertebral arteries. No evidence of carotid or vertebral artery aneurysm or dissection. There is arterial flow in the vertebral basilar artery system. There is arterial flow in the anterior middle and posterior cerebral arteries. No mass effect. No lucretia dence of intracranial aneurysm or neovascularity. No evidence of intracranial hemodynamic arterial st enosis. There is normal contrast opacification of the venous sinuses. IMPRESSION: Normal CT angiogram of the neck. Normal CT angiogram of the brain.
[2022-01-16 15:19] LABS: Platelet Count 91 k/uL (150-450); RBC Morphology Normal
[2022-01-16] MEDS ORDERED: ASPIRIN 81 MG PO STA (15:27)
[2022-01-16] MEDS ORDERED: NALOXONE 0.4 MG/ML 1 ML VIAL IV PRN (15:34)
[2022-01-16] MEDS ORDERED: SODIUM CHLORIDE 0.9% 1,000 ML IV SCH (15:45)
[2022-01-16] MEDS ORDERED: SODIUM CHLORIDE 0.9% 1,000 ML IV ONE (16:11)
[2022-01-16] MEDS ORDERED: MINERAL OIL-WHITE PETROLATUM 120 GM JAR TOPICAL PRN (16:12)
--- NOTE | 2022-01-16 16:31 | P.HPIM ---
History of Present Illness H&P Date: 01/16/22 Chief Complaint: Weakness Patient is a 51 year old male with a medical history of autism, schizophrenia currently resides in a long term who presents to the hospital with worsening mental status. Patient is nonverbal is unable to provide any history of physical therefore history is taken from patient's caregiver who is at bedside. Per caregiver patient has been having increase lethargy and fatigue for the past 2 days. Patient is also been having a nonproductive cough. This morning patient was sitting at table to have his normal breakfast where he had an episode described as possible syncopal event. Patient had associated right- sided facial droop appeared to be more confused and when staff checked patient's blood pressure was found to be 60/50. Patient was admitted to the hospital for urgent evaluation. Patient has not been having any complaints of fevers no nausea no vomiting no chills. Patient was not having any complaints of headaches no numbness or tingling. Initial neuroimaging in the emergency room was unrevealing for any evidence of C VA. Patient being admitted to observation stay for neurology eval. Patient is now returned back to close to baseline mentation however is still lethargic and fatigued Review of Systems Full complete review of systems performed pertinent positives noted in HPI. Past Medical History Past Medical History: Seizure Disorder Additional Past Medical History / Comment(s): diabetic diet- but caregiver states he is not a diabetic and long term does not check CBGs. History of Any Multi-Drug Resistant Organisms: None Reported Past Surgical History: No Surgical Hx Reported Past Psychological History: Anxiety, Panic Disorder, Schizophrenia Smoking Status: Never smoker Past Alcohol Use History: None Reported Past Drug Use History: None Reported - Past Family History Father Family Medical History: Unable to Obtain Mother Family Medical History: Unable to Obtain Medications and Allergies Home Medications Medication Instructions Recorded Confirmed Type Benztropine Mesylate [Cogentin] 1 mg PO BID@0700,2000 12/28/18 01/16/22 History Docusate [Colace] 100 mg PO DAILY@1600 12/28/18 01/16/22 History Eucerin Cream 1 applic TOPICAL DAILY PRN 12/28/18 01/16/22 History Loratadine 10 mg PO DAILY@0700 12/28/18 01/16/22 History cloZAPine [Clozaril] 100 mg PO HS@1600 12/28/18 01/16/22 History cloZAPine [Clozaril] 200 mg PO DAILY@0700 12/28/18 01/16/22 History Atenolol [Tenormin] 50 mg PO DAILY@0707/21/19 01/16/22 History LORazepam [Ativan] 1 mg PO BID PRN 07/21/19 01/16/22 History Melatonin 10 mg PO HS@199901/16/22 01/16/22 History QUEtiapine [SEROquel] 400 mg PO HS@199901/16/22 01/16/22 History polyethylene glycoL 3350 [Miralax] 17 gm PO DAILY@0701/16/22 01/16/22 History Allergies Allergy/AdvReac Type Severity Reaction Status Date / Time No Known Allergies Allergy Verified 01/16/22 15:25 Physical Exam Osteopathic Statement: *. No significant issues noted on an osteopathic structural exam other than those noted in the History and Physical/Consult. Vitals: Vital Signs Temp Pulse Resp BP Pulse Ox 01/16/22 16:12 59 L 16 99/80 97 01/16/22 15:36 59 L 16 102/63 95 01/16/22 15:00 97.6 F 01/16/22 13:57 60 16 96/61 95 01/16/22 12:51 62 16 92/57 Intake and Output 01/16/22 01/16/22 01/16/22 06:59 14:59 22:59 Other: Weight 63.503 kg General Impression: Alert, not in acute distress HEENT: Normocephalic atraumatic, extra-ocular movements intact, pupils equal and reactive to light bilaterally, mucous membranes moist. Cardiovascular: Heart regular rate and rhythm Chest: Able to complete full sentences, no retractions, no tachypnea Abdomen: abdomen soft, non-tender, non-distended, no organomegaly Musculoskeletal: Pulses present and equal in all extremities, no peripheral edema Motor: no focal deficits noted Neurological: No current facial droop noted, patient appears to be moving all 4 nenita spontaneously. We'll not follow commands for further neuro exam Skin: Intact with no visualized rashes Psych: Lethargic Results CBC & Chem 7: 01/16/22 13:40 01/16/22 13:40 Labs: Abnormal Lab Results - Last 24 Hours (Table) 01/16/22 01/16/22 Range/Units 13:40 13:40 RBC 3.54 L (4.30-5.90) m/uL Hgb 10.5 L (13.0-17.5) gm/dL Hct 31.9 L (39.0-53.0) % Plt Count 91 L (150-450) k/uL Lymphocytes # 0.3 L (1.0-4.8) k/uL BUN 22 H (9-20) mg/dL Glucose 109 H (74-99) mg/dL Calcium 7.6 L (8.4-10.2) mg/dL Total Protein 5.2 L (6.3-8.2) g/dL Albumin 2.9 L (3.5-5.0) g/dL Assessment and Plan (1) Facial droop Current Visit: Yes Status: Acute Code(s): R29.810 - FACIAL WEAKNESS SNOMED Code(s): 30134170 Plan: Acute metabolic encephalopathy Syncope -Patient presents to the hospital with worsening acute encephalopathy. Possible syncope event . -Patient to be likely secondary to acute viral illness. -Neuro imaging is unrevealing at this point of time. No evidence of acute CVA -Neuro consult has been placed for further recommendation Schizophrenia Autistic spectrum disorder -Patient resides in a long term as history of autistic spectrum disorder. Patient is nonverbal at baseline. However patient does follow commands is mobile and can perform all ADLs such as feeding himself. -Patient appears to be more lethargic with mental status changes therefore his home medications are currently going to be placed on hold until improvement of his mentation. -We'll resume patient's antipsychotic medications as able. Hypotensive -Patient has a history of hypertension therefore we will hold his home medication. -Continue with IV fluids. We'll order 1 additional liter and provide maintenance rate DVT prophylaxis: Lovenox CODE STATUS: Full code GI prophylaxis: Protonix
[2022-01-16] MEDS: SODIUM CHLORIDE 0.9% 1,000 ML IV SCH (22:10)
[2022-01-17 01:26] VITALS: RESP 16
[2022-01-17] MEDS: SODIUM CHLORIDE 0.9% 1,000 ML IV SCH (06:05)
[2022-01-17] MEDS ORDERED: PANTOPRAZOLE 40 MG TABLET PO SCH (07:30)
[2022-01-17 07:53] LABS: Basophils % (A) 1 %; Eosinophils # (A) 0.2 k/uL (0-0.7); Eosinophils % (A) 3 %; HCT 34.8 % (39.0-53.0); HGB 11.4 gm/dL (13.0-17.5); Lymphocytes # (A) 0.8 k/uL (1.0-4.8); Lymphocytes % (A) 16 %; MCH 29.7 pg (25.0-35.0); MCHC 32.6 g/dL (31.0-37.0); MCV 91.1 fL (80.0-100.0); Mean Platelet Volume 8.6; Monocytes # (A) 0.3 k/uL (0-1.0); Monocytes % (A) 6 %; Neutrophils # (A) 3.7 k/uL (1.3-7.7); Neutrophils % (A) 72 %; RBC 3.83 m/uL (4.30-5.90); RDW 12.8 % (11.5-15.5); WBC 5.1 k/uL (3.8-10.6)
[2022-01-17 07:58] LABS: Platelet Count 96 k/uL (150-450)
[2022-01-17 08:07] LABS: ALT 11 U/L (4-49); AST 22 U/L (17-59); African American GFR (CKD) >90 (>60 ml/min/1.73 sqM); Albumin 3.1 g/dL (3.5-5.0); Alkaline Phosphatase 56 U/L (38-126); Anion Gap 5 mmol/L; Blood Urea Nitrogen 15 mg/dL (9-20); Calcium 8.1 mg/dL (8.4-10.2); Carbon Dioxide 26 mmol/L (22-30); Chloride 110 mmol/L (98-107); Glucose 77 mg/dL (74-99); Non-African American GFR(CKD) >90 (>60 ml/min/1.73 sqM); Potassium 3.9 mmol/L (3.5-5.1); Sodium 141 mmol/L (137-145); Total Bilirubin 0.3 mg/dL (0.2-1.3); Total Protein 5.6 g/dL (6.3-8.2)
[2022-01-17] MEDS ORDERED: ENOXAPARIN 40 MG/0.4 ML SYRINGE SQ SCH (09:00)
--- NOTE | 2022-01-17 10:32 | P.CNNES ---
History of Present Illness Consult date: 01/17/22 Requesting physician: Kristie Jefferson Reason for Consult: Encephalopathy, syncope History of Present Illness: Patient is a 51-year-old male, with history of autism, with minimal verbal output, psychiatric disorder, a resident of a assisted, came to the hospital by ambulance yesterday at 12:45 PM for syncopal type spells. As per EMS flow sheet, patient resides at the assisted and had an episode of unresponsiveness. When they arrived, found patient sitting upright in a chair, alert to pain only and drooling. half-way staff were present. Patient was reported to have walked out into the kitchen and sat down. Patient then became responsive only to pain. Patient has history of cognitive impairment, she is aphemia and a TIA. Patient's initial GCS was 9, initially alert to pain. Patient's normal baseline is alert and oriented 0 with GCS of 12. Patient is nonverbal. Patient was initially pale with a thready radial pulse and is left eye had a disconjugate gaze. EKG shows normal sinus rhythm. Patient's blood pressure was 80/P, repeat was 86/52 with pulse rate 96, respiration 14. Blood glucose 169 a nd temperature 98.2. Vital signs arrival blood pressure 92/57, pulse rate 62. Blood test shows WBC 7.0 10.5, platelets 91. PT/PTT normal. Chem-20 is normal. Troponin negative. Influenza negative. RSV and coronal virus negative. CT head showed no suspicious acute intracranial changes. I personally review CT head and agree with the findings. Paranasal sinuses are clear. Chest x-ray showed no acute pulmonary process. EKG shows sinus rhythm. CTA of head and neck normal. Patient's home medications include Cogentin 1 mg twice a day, clozapine 100 mg at bedtime, 200 mg in the morning, loratadine, atenolol 50 mg daily, lorazepam 1 mg twice a day when necessary, Seroquel 400 mg at bedtime. I spoke to patient's brother, who was present at this time, states that patient has history of autism, also has evidence of some schizophrenia type disorder. He has echolalia. He has repetitive thoughts, anxiety. Although he has minimal verbal output, but he can tell what he wants. Lately he has been asking repetitively to get [employer] book. Sometimes he writes things on paper. M edically he is otherwise healthy. Patient has a twin brother, who also has significant mental issues. No history of seizures. Review of Systems ROS unobtainable: due to mental status Past Medical History Past Medical History: Seizure Disorder Additional Past Medical History / Comment(s): diabetic diet- but caregiver states he is not a diabetic and assisted does not check CBGs. diabetes has been diet controlled for years. History of Any Multi-Drug Resistant Organisms: None Reported Past Surgical History: No Surgical Hx Reported Past Anesthesia/Blood Transfusion Reactions: No Reported Reaction Past Psychological History: Anxiety, Panic Disorder, Schizophrenia Smoking Status: Never smoker Past Alcohol Use History: None Reported Past Drug Use History: None Reported - Past Family History Father Family Medical History: Unable to Obtain Mother Family Medical History: Unable to Obtain Medications and Allergies Home Medications Medication Instructions Recorded Confirmed Type Benztropine Mesylate [Cogentin] 1 mg PO BID@0700,199912/28/18 01/16/22 History Docusate [Colace] 100 mg PO DAILY@159912/28/18 01/16/22 History Eucerin Cream 1 applic TOPICAL DAILY PRN 12/28/18 01/16/22 History Loratadine 10 mg PO DAILY@69912/28/18 01/16/22 History cloZAPine [Clozaril] 100 mg PO HS@159912/28/18 01/16/22 History cloZAPine [Clozaril] 200 mg PO DAILY@0700 12/28/18 01/16/22 History Atenolol [Tenormin] 50 mg PO DAILY@0700 07/21/19 01/16/22 History LORazepam [Ativan] 1 mg PO BID PRN 07/21/19 01/16/22 History Melatonin 10 mg PO HS@199901/16/22 01/16/22 History QUEtiapine [SEROquel] 400 mg PO HS@199901/16/22 01/16/22 History polyethylene glycoL 3350 [Miralax] 17 gm PO DAILY@69901/16/22 01/16/22 History Allergies Allergy/AdvReac Type Severity Reaction Status Date / Time No Known Allergies Allergy Verified 01/16/22 15:25 Physical Examination - Vital Signs Vital Signs: Vital Signs Temp Pulse Pulse Resp BP BP Pulse Ox 01/17/22 04:00 98.2 F 60 16 128/79 99 01/17/22 02:00 57 L 16 01/17/22 00:00 98.9 F 57 L 16 119/75 99 01/16/22 17:28 98.0 F 59 L 16 103/64 97 01/16/22 17:00 57 L 18 110/71 95 01/16/22 16:12 59 L 16 99/80 97 01/16/22 15:36 59 L 16 102/63 95 01/16/22 15:00 97.6 F 01/16/22 13:57 60 16 96/61 95 01/16/22 12:51 62 16 92/57 Intake and Output 01/16/22 01/17/22 01/17/22 22:59 06:59 14:59 Intake Total 200 118 Balance 200 118 Intake: Intake, IV Titration 200 Amount Sodium Chloride 0.9% 1, 200 000 ml @ 75 mls/hr IV . [id number] [facility] Rx#:[id number] Oral 118 Other: Voiding Method Toilet Urinal Weight 63.503 kg Patient is a middle aged male, laying comfortably in the bed. Patient is alert awake. He is oriented to self. Patient often repeats with some echolalia. His speech is often difficult to understand. He may speak 1 word, to express what he wants. Attention, concentration and fund of knowledge is very limited. On cranial examination, pupils are equal, round and reacting to light, visual turk cannot be tested, extraocular muscles are intact with no nystagmus. No disconjugate gaze. Face is symmetric, tongue protrudes to the midline. Lower cranial nerves cannot be checked. Hearing appears intact. On muscle strength testing, there is no pronator drift. Patient did not cooperate with examination. His privacy director, deltoids with very poor effort appears symmetric. Likewise he would not cooperate for testing of the lower limbs. He did wiggle his feet bilaterally. Deep tendon reflexes are symmetric, 2 in the upper limbs at biceps and brachioradialis, 2 at the knees, 1 ankles and plantars are flat bilaterally. No clonus. Sensory to touch cannot be assessed. Patient does withdraw to painful stimuli equally. Cerebellar function could not be performed. Tone and bulk of muscles normal. Gait not checked. However patient's brother mentions that he walked to the bathroom earlier this morning, was very steady, in fact walking very briskly. On general examination, there is no carotid bruit or murmur, S1-S2 audible. Abdomen is soft nontender. No organomegaly, bowel sounds present. Chest is clear to auscultation. Peripheral pulses are present. No edema. Results - Laboratory Findings CBC and BMP: 01/17/22 07:09 01/17/22 07:09 Abnormal Lab Findings: Abnormal Labs 01/16/22 01/16/22 01/17/22 13:40 13:40 07:09 RBC 3.54 L 3.83 L Hgb 10.5 L 11.4 L Hct 31.9 L 34.8 L Plt Count 91 L 96 L Lymphocytes # 0.3 L 0.8 L Chloride BUN 22 H Glucose 109 H Calcium 7.6 L Total Protein 5.2 L Albumin 2.9 L 01/17/22 07:09 RBC Hgb Hct Plt Count Lymphocytes # Chloride 110 H BUN Glucose Calcium 8.1 L Total Protein 5.6 L Albumin 3.1 L Assessment and Plan Assessment: * Altered mental status with near syncopal spell, likely due to hypotension. Ex act cause of hypotension unclear, although patient was bradycardic, therefore may be related to side effects of atenolol. * Patient's current neurological examination is nonfocal. * Autistic disorder, developmental delays. Overall, decreased verbal output and baseline, with with words and short sentences. Plan: * Patient was bradycardic and hypotensive. Consider decreasing or stopping atenolol. I would defer to IM. * We will check TSH, B12 and folate. * Neurologically, no other workup indicated. Patient is back to baseline. * Neurologically clear. Thank you for the consult.
[2022-01-17 11:10] LABS: Appearance,Urine Clear (Clear); Bilirubin,Urine Negative (Negative); Blood,Urine Trace (Negative); Color,Urine Colorless; Glucose,Urine (UA) Negative (Negative); Ketones,Urine Negative (Negative); Leukocyte Esterase,Urine Negative (Negative); Mucus,Urine Rare /hpf; Nitrite,Urine Negative (Negative); PH, Urine 6.5 (5.0-8.0); Protein,Urine Negative (Negative); RBC,Urine 2 /hpf (0-5); Specific Gravity,Urine 1.005 (1.001-1.035); Urobilinogen,Urine <2.0 mg/dL (<2.0); WBC,Urine <1 /hpf (0-5)
--- NOTE | 2022-01-17 11:13 | P.DS ---
Providers Date of admission: 01/16/22 15:36 Attending physician: Pratima Wray MD Consults: 01/17/22 07:52 Consult Physician Routine Consulting Provider: Hill Thurman Consult Reason/Comments: Encephalopathy, Syncope Do you want consulting provider notified?: Yes, Notify in am Primary care physician: Renan Wolfe - Discharge Diagnosis(es) (1) Facial droop Current Visit: Yes Status: Acute Hospital Course: Patient is a 51-year-old male, with history of autism, with minimal verbal output, psychiatric disorder, a resident of a alf, came to the hospital by ambulance yesterday at 12:45 PM for syncopal type spells. As per EMS flow sheet, patient resides at the alf and had an episode of unresponsiveness. When they arrived, found patient sitting upright in a chair, alert to pain only and drooling. [facility] staff were present. Patient was reported to have walked out into the kitchen and sat down. Patient then became responsive only to pain. Patient has history of cognitive impairment, Patient is nonverbal. Patient was initially pale with a thready radial pulse and is left eye had a dis conjugate gaze. EKG shows normal sinus rhythm. Patient's blood pressure was 80/P, repeat was 86/52 with pulse rate 96, respiration 14. Blood glucose 169 and temperature 98.2. Patient was admitted to the hospital and there was concern for facial droop been continued altered mental status to rule out the possibility of CVA. Patient had a neuro workup complete in the hospital which did not reveal any evidence of acute CVA. Nephrology was consulted and no further imaging was recommended. Patient had returned back to his baseline mentation and was eating and drinking well he was not having any other deficits from his baseline mentation. Patient is being discharged back to alf. I recommendation of discontinuing atenolol due to patient's bradycardia. Also recommended to follow up with the psychiatric team for gradual dose reduction of his psychiatric medications if possible Patient Condition at Discharge: Fair Plan - Discharge Summary Discharge Rx Participant: No New Discharge Prescriptions: Continue Benztropine Mesylate [Cogentin] 1 mg PO BID@0700,2000 cloZAPine [Clozaril] 100 mg PO HS@1600 cloZAPine [Clozaril] 200 mg PO DAILY@0700 Loratadine 10 mg PO DAILY@0700 Docusate [Colace] 100 mg PO DAILY@1600 Eucerin Cream 1 applic TOPICAL DAILY PRN PRN Reason: feet Melatonin 10 mg PO HS@1999 QUEtiapine [SEROquel] 400 mg PO HS@1999 polyethylene glycoL 3350 [Miralax] 17 gm PO DAILY@0700 Discontinued Atenolol [Tenormin] 50 mg PO DAILY@0700 LORazepam [Ativan] 1 mg PO BID PRN PRN Reason: Anxiety Discharge Medication List Benztropine Mesylate [Cogentin] 1 mg PO BID@0700,199912/28/18 [History] Docusate [Colace] 100 mg PO DAILY@1600 12/28/18 [History] Eucerin Cream 1 applic TOPICAL DAILY PRN 12/28/18 [History] Loratadine 10 mg PO DAILY@0700 12/28/18 [History] cloZAPine [Clozaril] 100 mg PO HS@1600 12/28/18 [History] cloZAPine [Clozaril] 200 mg PO DAILY@0700 12/28/18 [History] Melatonin 10 mg PO HS@199901/16/22 [History] QUEtiapine [SEROquel] 400 mg PO HS@199901/16/22 [History] polyethylene glycoL 3350 [Miralax] 17 gm PO DAILY@0700 01/16/22 [History] Follow up Appointment(s)/Referral(s): Renan Wolfe DO [Primary Care Provider] - 1-2 days Discharge Disposition: OTHER INSTITUTION NOT DEFINED
[2022-01-17 12:01] VITALS: TEMP 98
[2022-01-17] MEDS ORDERED: cloZAPine 100 MG TAB PO SCH ×2 (12:02→16:00)
[2022-01-17 15:40] VITALS: BP 122/72; PULSE 69
[2022-01-17] MEDS ORDERED: DOCUSATE 100 MG CAP PO SCH (16:00)
[2022-01-17] MEDS ORDERED: BENZTROPINE MESYLATE 1 MG TAB PO SCH (20:00)
[2022-01-18] MEDS ORDERED: cloZAPine 100 MG TAB PO SCH (07:00)
[2022-01-18] MEDS ORDERED: LORATADINE 10 MG TAB PO SCH (07:00)
== END 2022-01-17 15:59 | disposition home or self-care (01) | DRG 314 ==
LOC: EC 12:45 → 3SCARD 15:36
PROVIDERS: ADMIT Internal Medicine; ATTEND Internal Medicine
DX: I95.9 Hypotension, unspecified (principal); G93.41 Metabolic encephalopathy; F84.0 Autistic disorder; B34.9 Viral infection, unspecified; F20.9 Schizophrenia, unspecified; Z20.822 Contact with and (suspected) exposure to COVID-19; R00.1 Bradycardia, unspecified; R29.810 Facial weakness; F41.0 Panic disorder [episodic paroxysmal anxiety]; F89 Unspecified disorder of psychological development; R48.8 Other symbolic dysfunctions; I10 Essential (primary) hypertension; R41.89 Other symptoms and signs involving cognitive functions and awareness; Z79.899 Other long term (current) drug therapy; Z86.69 Personal history of other diseases of the nervous system and sense organs; Z86.73 Personal history of transient ischemic attack (TIA), and cerebral infarction without residual deficits
CPT/HCPCS: 36415; 70450; 70496; 70498; 71045; 80053; 81001; 82607; 82746; 83605; 83735; 84145; 84443; 84484; 85025; 85610; 85730; 87636; 93005; 96360; 96361; 99285

== ENCOUNTER 2022-01-19 06:08 | Emergency (ER) | payer MEDICARE, OTHER ==
[2022-01-19 06:18] VITALS: BP 124/44; PULSE 107; RESP 22; TEMP 98.7
--- NOTE | 2022-01-19 07:15 | CT ---
EXAMINATION TYPE: CT brain savannaine wo con DATE OF EXAM: 01/19/2022 COMPARISON: CT brain 3 days ago HISTORY: Fall out of bed with headache and neck pain. CT DLP: 1365.1 mGycm. Automated Exposure Control for Dose Reduction was Utilized. TECHNIQUE: CT scan of the head and cervical spine are performed without contrast. FINDINGS: There is no acute intracranial hemorrhage, mass effect, or midline shift identified. The ventricles and sulci are within normal limits in size. Godfrey-white matter differentiation is maintain ed. The globes are intact and the visualized sinuses are clear. The calvarium is intact. Cervical spine is visualized in its entirety from C1 through upper thoracic levels and demonstrates s coliosis without evidence of acute fracture or dislocation. Prevertebral soft tissue appears within normal limits. The C1-C2 articulation is within normal limits on the coronal images. Vertebral body heights and disc space heights are maintained. Spinal canal is preserved. Thyroid gland appears with in normal limits. Visualized upper lungs show no pneumothorax. Patchy reticular opacities in posterio r aspect of the right lung are present. These are nonspecific. Correlate to exclude developing infect ion. IMPRESSION: 1. There is no acute fracture or dislocation evident in the cervical spine. 2. No acute intracranial hemorrhage or midline shift is seen.
--- NOTE | 2022-01-19 07:33 | ED ---
Head Injury HPI - General Chief complaint: Head Injury Stated complaint: fall, head injury Time Seen by Provider: 01/19/22 06:18 Source: patient, family, RN notes reviewed, old records reviewed, Caregiver Mode of arrival: wheelchair Limitations: language barrier - History of Present Illness Initial comments: Patient is a 51-year-old male, history of seizure disorder, baseline alert and oriented times one, lives in a long term, presenting to the emergency department with b and b gang worker after a fall. Patient was getting back into bed from using the restroom at approximately 4 AM when he fell either hitting the bed over night stand. This was witnessed by his roommate. There was no loss of consciousness. show worker noticed a bump on the back of his head, they agreed to bring him in for evaluation. He's had no nausea or vomiting is not complaining of being in pain. He is able to answer some questions. He should has been awake since the incident. Patient is not on blood thinners. Patient was recently at her facility 2 days ago for a stroke rule out. There is no further complaints. - Related Data Home Medications Medication Instructions Recorded Confirmed Benztropine Mesylate [Cogentin] 1 mg PO BID@0700,199912/28/18 01/16/22 Docusate [Colace] 100 mg PO DAILY@159912/28/18 01/16/22 Eucerin Cream 1 applic TOPICAL DAILY PRN 12/28/18 01/16/22 Loratadine 10 mg PO DAILY@0700 12/28/18 01/16/22 cloZAPine [Clozaril] 100 mg PO HS@159912/28/18 01/16/22 cloZAPine [Clozaril] 200 mg PO DAILY@0700 12/28/18 01/16/22 Melatonin 10 mg PO HS@199901/16/22 01/16/22 QUEtiapine [SEROquel] 400 mg PO HS@199901/16/22 01/16/22 polyethylene glycoL 3350 [Miralax] 17 gm PO DAILY@0700 01/16/22 01/16/22 Allergies/Adverse reactions: Allergies Allergy/AdvReac Type Severity Reaction Status Date / Time No Known Allergies Allergy Verified 01/19/22 06:17 Review of Systems ROS Statement: Those systems with pertinent positive or pertinent negative responses have been documented in the HPI. ROS Other: All systems not noted in ROS Statement are negative. Past Medical History Past Medical History: Seizure Disorder Additional Past Medical History / Comment(s): diabetic diet- but caregiver states he is not a diabetic and long term does not check CBGs. diabetes has been diet controlled for years. History of Any Multi-Drug Resistant Organisms: None Reported Past Surgical History: No Surgical Hx Reported Past Anesthesia/Blood Transfusion Reactions: No Reported Reaction Past Psychological History: Anxiety, Panic Disorder, Schizophrenia Smoking Status: Never smoker Past Alcohol Use History: None Reported Past Drug Use History: None Reported - Past Family History Father Family Medical History: Unable to Obtain Mother Family Medical History: Unable to Obtain General Exam - General Exam Comments Initial Comments: GENERAL: Patient is well-developed and well-nourished. Patient is nontoxic and in no acute distress. HEAD: Patient has a small hematoma to the posterior scalp. EYES: Pupils equal round and reactive to light, extraocular movements intact, sclera anicteric, conjunctiva are normal. Eyelids were unremarkable. ENT: Nares patent, oropharynx clear without exudates. Moist mucous membranes. NECK: Normal range of motion, supple without lymphadenopathy or JVD. No midline tenderness. LUNGS: Unlabored respirations. Breath sounds clear to auscultation bilaterally and equal. No wheezes rales or rhonchi. HEART: Regular rate and rhythm without murmurs, rubs or gallops. ABDOMEN: Soft, nontender, normoactive bowel sounds. No guarding, no rebound. No masses appreciated. MUSCULOSKELETAL: Normal extremities with adequate strength and normal range of motion, no pitting or edema. No clubbing or cyanosis. No pain to palpation in all 4 extremities. NEUROLOGICAL: Patient is alert and oriented x 1, patient is at his baseline according to caregiver.. Motor and sensory are also intact. Normal speech, normal gait. PSYCH: Normal mood, normal affect. SKIN: Warm, Dry, normal turgor, no rashes or lesions noted. Limitations: no limitations Course Vital Signs 01/19/22 06:12 Temperature 98.7 F Pulse Rate 107 H Respiratory 22 Rate Blood Pressure 124/44 O2 Sat by Pulse 96 Oximetry Medical Decision Making - Medical Decision Making Patient is a 51-year-old male, presenting from a long term after a fall early this morning approximately 3 hours prior to arrival. He is not on blood thinners, he did his head, no LOC, he has a small hematoma to the posterior scalp. Otherwise exam is unremarkable. He of the head and C-spine show no acute abnormality. Patient continues to be as baseline. 2 caregivers are at bedside, patient is stable for discharge back home. Return parameters were discussed, they verbalized understanding. Disposition Clinical Impression: Fall, Hematoma of scalp Disposition: HOME SELF-CARE Condition: Stable Instructions (If sedation given, give patient instructions): Contusion in Adults (ED) Additional Instructions: Please return to the Emergency Department if symptoms worsen or any other concerns. May apply ice to the area for discomfort, may give Tylenol for any headache. Follow-up with primary care physician. Is patient prescribed a controlled substance at d/c from ED?: No Referrals: Renan Wolfe DO [Primary Care Provider] - 1-2 days Time of Disposition: 07:48
== END 2022-01-19 08:00 | disposition home or self-care (01) ==
LOC: EC 06:08
DX: S00.03XA Contusion of scalp, initial encounter (principal); G40.909 Epilepsy, unspecified, not intractable, without status epilepticus; Z79.899 Other long term (current) drug therapy; W19.XXXA Unspecified fall, initial encounter
CPT/HCPCS: 70450; 72125; 99284

== ENCOUNTER 2022-07-10 14:51 | Emergency (ER) | payer MEDICARE, OTHER ==
[2022-07-10 15:16] VITALS: TEMP 98.3
[2022-07-10] MEDS ORDERED: LORazepam 2 MG/ML INJ IV STA ×2 (16:05→16:14)
[2022-07-10 16:33] LABS: Basophils % (A) 1 %; Eosinophils # (A) 0.1 k/uL (0-0.7); Eosinophils % (A) 2 %; HCT 23.4 % (39.0-53.0); HGB 7.2 gm/dL (13.0-17.5); Hypochromasia Marked; Lymphocytes # (A) 1.4 k/uL (1.0-4.8); Lymphocytes % (A) 30 %; MCH 23.1 pg (25.0-35.0); MCHC 30.7 g/dL (31.0-37.0); MCV 75.2 fL (80.0-100.0); Microcytosis Slight; Monocytes # (A) 0.2 k/uL (0-1.0); Monocytes % (A) 5 %; Neutrophils # (A) 2.8 k/uL (1.3-7.7); Neutrophils % (A) 60 %; Platelet Count 179 k/uL (150-450); Poikilocytosis Moderate; RBC 3.11 m/uL (4.30-5.90); RDW 14.4 % (11.5-15.5); WBC 4.7 k/uL (3.8-10.6)
[2022-07-10 16:45] LABS: INR 1.1 (<1.2); Partial Thromboplastin Time 23.6 sec (22.0-30.0); Prothrombin Time 11.3 sec (9.0-12.0)
[2022-07-10 16:48] LABS: ALT 14 U/L (4-49); AST 26 U/L (17-59); African American GFR (CKD) >90 (>60 ml/min/1.73 sqM); Albumin 3.7 g/dL (3.5-5.0); Alkaline Phosphatase 64 U/L (38-126); Anion Gap 5 mmol/L; Blood Urea Nitrogen 30 mg/dL (9-20); Calcium 8.7 mg/dL (8.4-10.2); Carbon Dioxide 26 mmol/L (22-30); Chloride 109 mmol/L (98-107); Glucose 82 mg/dL (74-99); Magnesium 2.1 mg/dL (1.6-2.3); Non-African American GFR(CKD) >90 (>60 ml/min/1.73 sqM); Potassium 3.6 mmol/L (3.5-5.1); Sodium 140 mmol/L (137-145); Total Bilirubin 0.2 mg/dL (0.2-1.3); Total Protein 6.1 g/dL (6.3-8.2)
--- NOTE | 2022-07-10 16:51 | ED ---
General Adult HPI - General Chief complaint: Recheck/Abnormal Lab/Rx Stated complaint: blood transfusion Time Seen by Provider: 07/10/22 15:24 Source: patient, family Mode of arrival: ambulatory Limitations: no limitations - History of Present Illness Initial comments: This is a 52-year-old male who has a past medical history including mental delay presented to the emergency department for low hemoglobin. It was reported the patient had laboratory workup performed at outside facility on Tuesday and had a hemoglobin of 7.5. The patient was sent to get his blood drawn today at outside facility and the accounting assistant was told to bring him immediately to the emergency department for a transfusion. The exact hemoglobin today was unknown. The patient himself was at his baseline and denied of any abnormalities noted. The patient is nonverbal at baseline. The accounting assistant did state that there were no dark stools or any other modalities noted over the last several days. The patient was resting in bed comfortably. - Related Data Home Medications Medication Instructions Recorded Confirmed Benztropine Mesylate [Cogentin] 1 mg PO BID@0700,199912/28/18 01/16/22 Docusate [Colace] 100 mg PO DAILY@159912/28/18 01/16/22 Eucerin Cream 1 applic TOPICAL DAILY PRN 12/28/18 01/16/22 Loratadine 10 mg PO DAILY@69912/28/18 01/16/22 cloZAPine [Clozaril] 100 mg PO HS@159912/28/18 01/16/22 cloZAPine [Clozaril] 200 mg PO DAILY@69912/28/18 01/16/22 Melatonin [Melatonin ER] 10 mg PO HS@199901/16/22 01/16/22 QUEtiapine [SEROquel] 400 mg PO HS@199901/16/22 01/16/22 polyethylene glycoL 3350 [Miralax] 17 gm PO DAILY@69901/16/22 01/16/22 Allergies Allergy/AdvReac Type Severity Reaction Status Date / Time No Known Allergies Allergy Verified 01/19/22 06:17 Review of Systems ROS Statement: Those systems with pertinent positive or pertinent negative responses have been documented in the HPI. ROS Other: All systems not noted in ROS Statement are negative. Limitations: ROS unobtainable due to patients medical condition Past Medical History Past Medical History: Seizure Disorder Additional Past Medical History / Comment(s): diabetic diet- but caregiver states he is not a diabetic and fdc does not check CBGs. diabetes has been diet controlled for years. History of Any Multi-Drug Resistant Organisms: None Reported Past Surgical History: No Surgical Hx Reported Past Anesthesia/Blood Transfusion Reactions: No Reported Reaction Past Psychological History: Anxiety, Panic Disorder, Schizophrenia Smoking Status: Never smoker Past Alcohol Use History: None Reported Past Drug Use History: None Reported - Past Family History Father Family Medical History: Unable to Obtain Mother Family Medical History: Unable to Obtain General Exam Limitations: physical limitation General appearance: alert, in no apparent distress Head exam: Present: atraumatic, normocephalic Eye exam: Present: normal appearance, PERRL Pupils: Present: normal accommodation ENT exam: Present: normal exam, normal oropharynx, mucous membranes moist Neck exam: Present: normal inspection, full ROM Respiratory exam: Present: normal lung sounds bilaterally Cardiovascular Exam: Present: regular rate, normal rhythm, normal heart sounds GI/Abdominal exam: Present: soft, normal bowel sounds Extremities exam: Present: normal inspection, full ROM Back exam: Present: normal inspection, full ROM Neurological exam: Present: alert, CN II-XII intact, other (Nonverbal at baseline) Psychiatric exam: Present: normal affect, normal mood Skin exam: Present: warm, dry Course Vital Signs 07/10/22 15:09 Temperature 98.3 F Pulse Rate 72 Respiratory 18 Rate Blood Pressure 96/63 O2 Sat by Pulse 100 Oximetry Medical Decision Making - Medical Decision Making The patient was seen and evaluated in the emergency department. Physical exam, the patient was resting in bed without any acute distress. Vital signs admission were stable. Laboratory workup was obtained to confirm the hemoglobin level. Because the patient had developed mental delay and aversion to an IV, the patient did require 2 mg of Ativan for sedation in order to protect himself from hitting and lashing out at himself and his accounting assistant. The patient did continue to remain stable. Laboratory workup was obtained and showed a hemoglobin of 7.2 which is stable from his previous draw. The patient did not require a blood transfusion at this time as the patient did continue to have stable vital signs. A rectal exam was obtained that did not show any internal or external hemorrhoids. Guaiac testing was performed and was negative for occult blood. The patient continued to remain stable and was seems still for discharge. The patient's accounting assistant was told that the patient could follow up with his primary care physician for continued workup and evaluation as to the etiology of the patient's anemia. The patient require any further treatment or evaluation emergency department and remained stable. The patient's accounting assistant was agreeable to this and did understand the instructions [facility] if there is any acute change in his symptoms. The patient was stable and was discharged home in stable condition with his accounting assistant. - Lab Data Result diagrams: 07/10/22 16:00 07/10/22 16:00 Lab Results 07/10/22 07/10/22 07/10/22 Range/Units 15:55 16:00 16:00 WBC 4.7 (3.8-10.6) k/uL RBC 3.11 L (4.30-5.90) m/uL Hgb 7.2 L (13.0-17.5) gm/dL Hct 23.4 L (39.0-53.0) % MCV 75.2 L (80.0-100.0) fL MCH 23.1 L (25.0-35.0) pg MCHC 30.7 L (31.0-37.0) g/dL RDW 14.4 (11.5-15.5) % Plt Count 179 (150-450) k/uL MPV 8.0 Neutrophils % 60 % Lymphocytes % 30 % Monocytes % 5 % Eosinophils % 2 % Basophils % 1 % Neutrophils # 2.8 (1.3-7.7) k/uL Lymphocytes # 1.4 (1.0-4.8) k/uL Monocytes # 0.2 (0-1.0) k/uL Eosinophils # 0.1 (0-0.7) k/uL Basophils # 0.0 (0-0.2) k/uL Hypochromasia Marked Poikilocytosis Moderate Microcytosis Slight PT 11.3 (9.0-12.0) sec INR 1.1 (<1.2) APTT 23.6 (22.0-30.0) sec Sodium (137-145) mmol/L Potassium (3.5-5.1) mmol/L Chloride (98-107) mmol/L Carbon Dioxide (22-30) mmol/L Anion Gap mmol/L BUN (9-20) mg/dL Creatinine (0.66-1.25) mg/dL Est GFR (CKD-EPI)AfAm (>60 ml/min/1.73 sqM) Est GFR (CKD-EPI)NonAf (>60 ml/min/1.73 sqM) Glucose (74-99) mg/dL Calcium (8.4-10.2) mg/dL Magnesium (1.6-2.3) mg/dL Total Bilirubin (0.2-1.3) mg/dL AST (17-59) U/L ALT (4-49) U/L Alkaline Phosphatase (38-126) U/L Total Protein (6.3-8.2) g/dL Albumin (3.5-5.0) g/dL Stool Occult Blood (Negative) Blood Type O Positive Blood Type Confirm Blood Type Recheck No Previous Record Bld Type Recheck Status CABO Indicated Antibody Screen NEGATIVE Spec Expiration Date 07/13/2022 - 229907/10/22 07/10/22 07/10/22 Range/Units 16:00 16:00 17:20 WBC (3.8-10.6) k/uL RBC (4.30-5.90) m/uL Hgb (13.0-17.5) gm/dL Hct (39.0-53.0) % MCV (80.0-100.0) fL MCH (25.0-35.0) pg MCHC (31.0-37.0) g/dL RDW (11.5-15.5) % Plt Count (150-450) k/uL MPV Neutrophils % % Lymphocytes % % Monocytes % % Eosinophils % % Basophils % % Neutrophils # (1.3-7.7) k/uL Lymphocytes # (1.0-4.8) k/uL Monocytes # (0-1.0) k/uL Eosinophils # (0-0.7) k/uL Basophils # (0-0.2) k/uL Hypochromasia Poikilocytosis Microcytosis PT (9.0-12.0) sec INR (<1.2) APTT (22.0-30.0) sec Sodium 140 (137-145) mmol/L Potassium 3.6 (3.5-5.1) mmol/L Chloride 109 H (98-107) mmol/L Carbon Dioxide 26 (22-30) mmol/L Anion Gap 5 mmol/L BUN 30 H (9-20) mg/dL Creatinine 0.94 (0.66-1.25) mg/dL Est GFR (CKD-EPI)AfAm >90 (>60 ml/min/1.73 sqM) Est GFR (CKD-EPI)NonAf >90 (>60 ml/min/1.73 sqM) Glucose 82 (74-99) mg/dL Calcium 8.7 (8.4-10.2) mg/dL Magnesium 2.1 (1.6-2.3) mg/dL Total Bilirubin 0.2 (0.2-1.3) mg/dL AST 26 (17-59) U/L ALT 14 (4-49) U/L Alkaline Phosphatase 64 (38-126) U/L Total Protein 6.1 L (6.3-8.2) g/dL Albumin 3.7 (3.5-5.0) g/dL Stool Occult Blood Negative (Negative) Blood Type Blood Type Confirm O Positive Blood Type Recheck Bld Type Recheck Status Antibody Screen Spec Expiration Date Disposition Clinical Impression: Low hemoglobin, Normal exam Disposition: HOME SELF-CARE Condition: Stable Instructions (If sedation given, give patient instructions): Anemia (ED) Is patient prescribed a controlled substance at d/c from ED?: No Referrals: Wes Hendrickson MD [Primary Care Provider] - 1-2 days Time of Disposition: 17:50
[2022-07-10 18:06] VITALS: BP 123/74; PULSE 70; RESP 16
== END 2022-07-10 18:06 | disposition home or self-care (01) ==
LOC: EC 14:51
DX: D64.9 Anemia, unspecified (principal); Z00.00 Encounter for general adult medical examination without abnormal findings; F41.9 Anxiety disorder, unspecified
CPT/HCPCS: 36415; 86900; 86901; 80053; 83735; 85025; 85610; 85730; 86850; 82272; 99283; 96374; J2060

== ENCOUNTER 2022-07-13 20:28 | Emergency (ER) | payer MEDICARE, OTHER ==
[2022-07-13] MEDS ORDERED: SODIUM CHLORIDE 0.9% 1,000 ML IV STA (20:41)
--- NOTE | 2022-07-13 21:21 | ED ---
General Adult HPI - General Chief complaint: Syncope Stated complaint: Syncope Time Seen by Provider: 07/13/22 20:40 Source: EMS, RN notes reviewed Mode of arrival: EMS Limitations: altered mental status - History of Present Illness Initial comments: This is a pleasant 52-year-old male presents to emergency department after having a syncopal episode when he was eating. Apparently this was witnessed at a nursing home. There is no notification of seizure activity over the patient does have a history of seizure disorder. I do evaluate the patient this time. Patient is in no distress. Is resting in bed. No neurological impairment. Noted the patient is nonverbal. Review of systems is essentially limited due to this. - Related Data Home Medications Medication Instructions Recorded Confirmed Benztropine Mesylate [Cogentin] 1 mg PO BID@0700,199912/28/18 01/16/22 Docusate [Colace] 100 mg PO DAILY@1600 12/28/18 01/16/22 Eucerin Cream 1 applic TOPICAL DAILY PRN 12/28/18 01/16/22 Loratadine 10 mg PO DAILY@0700 12/28/18 01/16/22 cloZAPine [Clozaril] 100 mg PO HS@1600 12/28/18 01/16/22 cloZAPine [Clozaril] 200 mg PO DAILY@69912/28/18 01/16/22 Melatonin [Melatonin ER] 10 mg PO HS@199901/16/22 01/16/22 QUEtiapine [SEROquel] 400 mg PO HS@199901/16/22 01/16/22 polyethylene glycoL 3350 [Miralax] 17 gm PO DAILY@69901/16/22 01/16/22 Allergies Allergy/AdvReac Type Severity Reaction Status Date / Time No Known Allergies Allergy Verified 01/19/22 06:17 Review of Systems ROS Statement: Those systems with pertinent positive or pertinent negative responses have been documented in the HPI. ROS Other: All systems not noted in ROS Statement are negative. Limitations: ROS unobtainable due to patients medical condition Past Medical History Past Medical History: Seizure Disorder Additional Past Medical History / Comment(s): diabetic diet- but caregiver states he is not a diabetic and nursing home does not check CBGs. diabetes has been diet controlled for years. History of Any Multi-Drug Resistant Organisms: None Reported Past Surgical History: No Surgical Hx Reported Past Anesthesia/Blood Transfusion Reactions: No Reported Reaction Past Psychological History: Anxiety, Panic Disorder, Schizophrenia Smoking Status: Never smoker Past Alcohol Use History: None Reported Past Drug Use History: None Reported - Past Family History Father Family Medical History: Unable to Obtain Mother Family Medical History: Unable to Obtain General Exam - General Exam Comments Initial Comments: Patient likely neurological baseline. Cranial nerves II through XII grossly intact, does not appear to be ill or toxic. Vital signs stable, patient afebrile Limitations: altered mental status General appearance: alert, in no apparent distress Head exam: Present: atraumatic, normocephalic, normal inspection Eye exam: Present: normal appearance, PERRL, EOMI. Absent: scleral icterus, conjunctival injection, periorbital swelling ENT exam: Present: normal exam, normal oropharynx, mucous membranes moist, normal external ear exam. Absent: mucous membranes dry Neck exam: Present: normal inspection, full ROM. Absent: tenderness, meningismus, lymphadenopathy Respiratory exam: Present: normal lung sounds bilaterally. Absent: respiratory distress, wheezes, rales, rhonchi, stridor Cardiovascular Exam: Present: regular rate, normal rhythm, normal heart sounds. Absent: systolic murmur, diastolic murmur, rubs, gallop, clicks GI/Abdominal exam: Present: soft, normal bowel sounds. Absent: distended, tenderness, guarding, rebound, rigid Rectal exam: Present: normal inspection, normal rectal tone, normal prostate, other (Chaperoned by RN). Absent: decreased rectal tone, black stool, bloody stool (Brown stool), hemorrhoids, mass, tenderness, prostate tenderness, prostate enlargement Extremities exam: Present: normal inspection, full ROM, normal capillary refill. Absent: tenderness, pedal edema, joint swelling, calf tenderness Back exam: Present: normal inspection Neurological exam: Present: alert, CN II-XII intact (Grossly) Psychiatric exam: Present: normal affect, normal mood Skin exam: Present: warm, dry, intact, normal color, pallor. Absent: rash, cyanosis, diaphoretic, erythema, urticaria, vesicles, petechiae, mottled, abrasion Course Vital Signs 07/13/22 07/14/22 20:34 01:05 Temperature 97.0 F L Pulse Rate 54 L Pulse Rate [ 67 Pulse Oximetery ] Respiratory 16 15 Rate Blood Pressure 93/61 Blood Pressure 107/60 [Left Arm] O2 Sat by Pulse 99 100 Oximetry - Reevaluation(s) Reevaluation #1: 07/13/22 22:26 Patient's hemoglobin noted to be 6.9. Hematocrit 22.6. MCV 74.6. MCH 22.8. MCHC 30.6. RDW is 14.6. Patient does have a history of anemia noted. This is consistent with microcytic hyperchromic anemia. RDW is normal. This could indicate an acute on chronic anemia state. Patient is hemodynamically stable and in no acute distress. - Consultations Consultation #1: Call placed for the admitting physician Consultation #2: Case discussed in detail with the ED physician from [facility] ER, Dr. Davalos, who accepts transfer the patient. Patient was transferred for syncope, symptomatic anemia, possible GI bleed EKG Findings - EKG Comments: EKG Findings:: Patient present with evidence of bloody diarrhea. Patient hemodynamically stable. In no acute distress. No abdominal pain. No abdominal tenderness. We'll send a stool study. Patient looks well otherwise. Rectal examination was performed with assistant center director. Medical Decision Making - Medical Decision Making Patient's workup shows evidence of microcytic anemia with a hemoglobin 6.9. Patient was seen here 2 days ago for low hemoglobin as well. Apparently the outside hemoglobin was 7.5 that day, patient had a repeat CBC which showed hemoglobin 7.2. Patient was deemed not to require blood transfusion. Patient had negative Hemoccult at the time of that visit. Patient's hemoglobin today is 6.9. On transfusion ordered. The examination performed. Case was discussed with both the hospitalist physician as well as the on-call surgeon here, both physicians recommended transfer due to the possibility of gastrointestinal hemorrhage. Patient's Hemoccult was negative. Patient did have mild thrombocytopenia as well. Note that the patient is on clozipine which can cause blood dyscrasias. Patient remained hemodynamically stable. One unit of packed red blood cells was ordered. Case was discussed with [facility] emergency department, Dr. Davalos Consent for transfer was obtained by the patient's power of claim attorney. - Lab Data Result diagrams: 07/13/22 21:38 07/13/22 21:38 Lab Results 07/13/22 07/13/22 07/13/22 Range/Units 21:38 21:38 21:38 WBC 4.0 (3.8-10.6) k/uL RBC 3.03 L (4.30-5.90) m/uL Hgb 6.9 L* (13.0-17.5) gm/dL Hct 22.6 L (39.0-53.0) % MCV 74.6 L (80.0-100.0) fL MCH 22.8 L (25.0-35.0) pg MCHC 30.6 L (31.0-37.0) g/dL RDW 14.6 (11.5-15.5) % Plt Count 137 L (150-450) k/uL MPV 7.9 Neutrophils % 73 % Lymphocytes % 17 % Monocytes % 6 % Eosinophils % 1 % Basophils % 1 % Neutrophils # 2.9 (1.3-7.7) k/uL Lymphocytes # 0.7 L (1.0-4.8) k/uL Monocytes # 0.3 (0-1.0) k/uL Eosinophils # 0.1 (0-0.7) k/uL Basophils # 0.0 (0-0.2) k/uL Hypochromasia Marked Poikilocytosis Slight Microcytosis Slight PT (9.0-12.0) sec INR (<1.2) APTT (22.0-30.0) sec D-Dimer 0.55 (<0.60) mg/L FEU Sodium 137 (137-145) mmol/L Potassium 3.8 (3.5-5.1) mmol/L Chloride 105 (98-107) mmol/L Carbon Dioxide 29 (22-30) mmol/L Anion Gap 3 mmol/L BUN 25 H (9-20) mg/dL Creatinine 0.97 (0.66-1.25) mg/dL Est GFR (CKD-EPI)AfAm >90 (>60 ml/min/1.73 sqM) Est GFR (CKD-EPI)NonAf 89 (>60 ml/min/1.73 sqM) Glucose 82 (74-99) mg/dL Calcium 8.4 (8.4-10.2) mg/dL Magnesium 2.2 (1.6-2.3) mg/dL Total Bilirubin 0.2 (0.2-1.3) mg/dL AST 22 (17-59) U/L ALT 13 (4-49) U/L Alkaline Phosphatase 58 (38-126) U/L Troponin I (0.000-0.034) ng/mL Total Protein 5.8 L (6.3-8.2) g/dL Albumin 3.6 (3.5-5.0) g/dL Stool Occult Blood (Negative) 07/13/22 07/13/22 07/13/22 Range/Units 21:38 21:38 22:23 WBC (3.8-10.6) k/uL RBC (4.30-5.90) m/uL Hgb (13.0-17.5) gm/dL Hct (39.0-53.0) % MCV (80.0-100.0) fL MCH (25.0-35.0) pg MCHC (31.0-37.0) g/dL RDW (11.5-15.5) % Plt Count (150-450) k/uL MPV Neutrophils % % Lymphocytes % % Monocytes % % Eosinophils % % Basophils % % Neutrophils # (1.3-7.7) k/uL Lymphocytes # (1.0-4.8) k/uL Monocytes # (0-1.0) k/uL Eosinophils # (0-0.7) k/uL Basophils # (0-0.2) k/uL Hypochromasia Poikilocytosis Microcytosis PT 11.2 (9.0-12.0) sec INR 1.0 (<1.2) APTT 22.1 (22.0-30.0) sec D-Dimer (<0.60) mg/L FEU Sodium (137-145) mmol/L Potassium (3.5-5.1) mmol/L Chloride (98-107) mmol/L Carbon Dioxide (22-30) mmol/L Anion Gap mmol/L BUN (9-20) mg/dL Creatinine (0.66-1.25) mg/dL Est GFR (CKD-EPI)AfAm (>60 ml/min/1.73 sqM) Est GFR (CKD-EPI)NonAf (>60 ml/min/1.73 sqM) Glucose (74-99) mg/dL Calcium (8.4-10.2) mg/dL Magnesium (1.6-2.3) mg/dL Total Bilirubin (0.2-1.3) mg/dL AST (17-59) U/L ALT (4-49) U/L Alkaline Phosphatase (38-126) U/L Troponin I <0.012 (0.000-0.034) ng/mL Total Protein (6.3-8.2) g/dL Albumin (3.5-5.0) g/dL Stool Occult Blood Negative (Negative) - Radiology Data Radiology results: report reviewed, image reviewed I did interpret the chest x-ray, CT brain, and CT abdomen and pelvis myself. No evidence of acute pathology. Patient did have atrophy noted on CT brain as well as groundglass appearance in the right lower lung lobe seen on computed tomography scan. Concurs with radiology interpretation. Note the patient does not have a cough or fever. I suspect this is chronic and not related to pneumonia. Disposition Clinical Impression: Symptomatic anemia, Syncope Narrative: Possible gastrointestinal bleed Disposition: ADMITTED IP TO THIS HOSP Condition: Fair Is patient prescribed a controlled substance at d/c from ED?: No Time of Disposition: 01:14 Decision to Admit Reason: Admit from EC Decision Time: 22:37 - Out of Hospital Transfer - Req. Specs Out of Hospital Transfer - Requested Specifics: Other Emergency Center ([facility]--Dr. Davalos)
--- NOTE | 2022-07-13 21:31 | XR ---
EXAMINATION TYPE: XR chest 1V portable DATE OF EXAM: 07/13/2022 COMPARISON: 01/16/2022 HISTORY: Syncope TECHNIQUE: FINDINGS: Heart is normal. Lungs are clear. Diaphragm is normal. Bony thorax is intact. IMPRESSION: Normal chest. No change.
[2022-07-13 21:54] LABS: Basophils % (A) 1 %; Eosinophils # (A) 0.1 k/uL (0-0.7); Eosinophils % (A) 1 %; HCT 22.6 % (39.0-53.0); Hypochromasia Marked; Lymphocytes # (A) 0.7 k/uL (1.0-4.8); Lymphocytes % (A) 17 %; MCH 22.8 pg (25.0-35.0); MCHC 30.6 g/dL (31.0-37.0); MCV 74.6 fL (80.0-100.0); Mean Platelet Volume 7.9; Microcytosis Slight; Monocytes # (A) 0.3 k/uL (0-1.0); Monocytes % (A) 6 %; Neutrophils # (A) 2.9 k/uL (1.3-7.7); Neutrophils % (A) 73 %; Platelet Count 137 k/uL (150-450); Poikilocytosis Slight; RBC 3.03 m/uL (4.30-5.90); RDW 14.6 % (11.5-15.5)
[2022-07-13 21:57] LABS: HGB 6.9 gm/dL (13.0-17.5)
[2022-07-13 22:03] LABS: ALT 13 U/L (4-49); AST 22 U/L (17-59); African American GFR (CKD) >90 (>60 ml/min/1.73 sqM); Albumin 3.6 g/dL (3.5-5.0); Alkaline Phosphatase 58 U/L (38-126); Anion Gap 3 mmol/L; Blood Urea Nitrogen 25 mg/dL (9-20); Calcium 8.4 mg/dL (8.4-10.2); Carbon Dioxide 29 mmol/L (22-30); Chloride 105 mmol/L (98-107); Glucose 82 mg/dL (74-99); Magnesium 2.2 mg/dL (1.6-2.3); Non-African American GFR(CKD) 89 (>60 ml/min/1.73 sqM); Potassium 3.8 mmol/L (3.5-5.1); Sodium 137 mmol/L (137-145); Total Bilirubin 0.2 mg/dL (0.2-1.3); Total Protein 5.8 g/dL (6.3-8.2)
--- NOTE | 2022-07-13 23:34 | CT ---
EXAMINATION TYPE: CT brain wo con DATE OF EXAM: 07/13/2022 COMPARISON: 01/19/2022 HISTORY: syncope, possible head injury, poor historian CT DLP: 1247.4 mGycm Automated exposure control for dose reduction was used. Ventricles have fairly normal size. There is minimal cerebral atrophy. There is no mass effect or mid line shift. No sign of intracranial hemorrhage. The calvarium is intact. Skull base is intact. There is little pneumatization of the right mastoid sinus. IMPRESSION: Mild atrophy. No acute intracranial abnormality. No change compared to old exam.
--- NOTE | 2022-07-14 00:11 | CT ---
EXAMINATION TYPE: CT angio abdomen pelvis DATE OF EXAM: 07/13/2022 COMPARISON: 07/21/2019 HISTORY: gi bleed protocol, anemia, syncope CT DLP: 1852.5 mGycm Automated exposure control for dose reduction was used. CONTRAST: Performed with IV Contrast, patient injected with 100 mL of Isovue 370. Images obtained from the diaphragm to the floor the pelvis without and subsequently with the IV contr ast. There are delayed images. The lung bases are clear of consolidation. Heart size is normal. No pericardial effusion. Liver spleen appear intact. Stomach is intact. The bile ducts are not dilated. Gallbladder appears no rmal. There is no sign of mesenteric edema. No ascites or free air. No sign of a bowel obstruction. K idneys show satisfactory contrast opacification. No hydronephrosis. The bladder distends smoothly. No inguinal hernia. No free fluid in the pelvis. There is apparent previous surgery at the sigmoid colo n. Delayed images show no evidence of contrast extravasation. There is arterial flow in the abdominal aorta and the celiac artery and superior mesenteric artery. T here is arterial flow in the renal and iliac and femoral arteries. No evidence of aneurysm or dissect ion. No evidence of hemodynamic stenosis. IMPRESSION: No evidence of active GI bleeding. Minimal groundglass interstitial infiltrate lateral right lung bas e. No significant angiographic abnormality of the abdomen and pelvis.
[2022-07-14 00:41] LABS: Prothrombin Time 11.2 sec (9.0-12.0)
[2022-07-14 00:42] LABS: Partial Thromboplastin Time 22.1 sec (22.0-30.0)
[2022-07-14] MEDS ORDERED: PANTOPRAZOLE 40 MG/10 ML VIAL IVP STA (01:13)
[2022-07-14 02:43] VITALS: TEMP 97.2
[2022-07-14 03:02] VITALS: BP 106/66; PULSE 52; RESP 16
== END 2022-07-14 03:19 | disposition other institution (70) ==
LOC: EC 20:28
DX: D64.9 Anemia, unspecified (principal); R55 Syncope and collapse; D69.6 Thrombocytopenia, unspecified
CPT/HCPCS: 36415; 93005; 86900; 86901; 85379; 80053; 83735; 84484; 85025; 85610; 85730; 86850; 86920; 82272; 71045; 70450; 74174; 99285; 96361; 96374; 36430; P9016; C9113; Q9967